=== PATIENT | female | born 1990 | race African-American/Black ===

== ENCOUNTER 2016-03-17 11:11 | Emergency (ER) | payer OTHER ==
[2016-03-17 11:22] VITALS: RESP 16
[2016-03-17] MEDS ORDERED: ALBUTEROL NEBULIZED 2.5 MG/3 ML INHALATION STA (11:43)
[2016-03-17] MEDS ORDERED: predniSONE 20 MG TAB PO STA (11:43)
[2016-03-17 12:11] LABS: Basophils % (A) 0 %; CH 24.5; CHCM 30.8; Eosinophils # (A) 0.2 k/uL (0-0.7); Eosinophils % (A) 2 %; HCT 40.7 % (34.0-46.0); HDW 2.53; HGB 12.8 gm/dL (11.4-16.0); Hypochromasia Slight; Luc # (Auto) 0.19; Luc % (Auto) 2; Lymphocytes # (A) 2.1 k/uL (1.0-4.8); Lymphocytes % (A) 20 %; MCH 25.1 pg (25.0-35.0); MCHC 31.4 g/dL (31.0-37.0); MCV 80.1 fL (80.0-100.0); Mean Platelet Volume 6.5; Monocytes # (A) 0.5 k/uL (0-1.0); Monocytes % (A) 4 %; Neutrophils # (A) 7.4 k/uL (1.3-7.7); Neutrophils % (A) 72 %; RBC 5.09 m/uL (3.80-5.40); RDW 13.6 % (11.5-15.5); WBC 10.4 k/uL (3.8-10.6); WBC (Perox) 10.46
[2016-03-17 12:12] LABS: Appearance,Urine Clear (Clear); Bilirubin,Urine Negative (Negative); Glucose,Urine (UA) Negative (Negative); Ketones,Urine Negative (Negative); Leukocyte Esterase,Urine Negative (Negative); Nitrite,Urine Negative (Negative); Protein,Urine Negative (Negative); Specific Gravity,Urine 1.012 (1.001-1.035); UA Billing (MACRO vs. MICRO) CHEM; Urobilinogen,Urine <2.0 mg/dL (<2.0)
[2016-03-17 12:25] LABS: Anion Gap 9 mmol/L; Blood Urea Nitrogen 7 mg/dL (7-17); Carbon Dioxide 21 mmol/L (22-30); Chloride 108 mmol/L (98-107); Glucose 80 mg/dL (74-99); Non-African American GFR(MDRD) >60 (>60 ml/min/1.73 sqM); Potassium 4.3 mmol/L (3.5-5.1); Sodium 138 mmol/L (137-145)
--- NOTE | 2016-03-17 12:45 | ED ---
General Adult HPI - General Chief complaint: Upper Respiratory Infection Stated complaint: COUGH AND SORE THROAT Time Seen by Provider: 03/17/16 11:21 Source: patient, RN notes reviewed Mode of arrival: ambulatory Limitations: no limitations - History of Present Illness Initial comments: This patient is a 25-year-old woman who has 2 complaints today. First is that she has had cough, congestion, and wheezing going on for 3-4 days now. She states that she usually uses albuterol but that she is out of this medication. Patient denies fever. She denies head or neck pain. The patient also has been having chronic intermittent abdominal pains, that her worst in the right upper quadrant. She describes it as an aching pain that sometimes radiates to her back. She states it is intermittent. There are times that it seems to be made worse with eating. She is not having any associated fever or chills, nausea or vomiting or change in bowel movements., - Related Data Home Medications Medication Instructions Recorded Confirmed Albuterol Inhaler [Ventolin 1 - 2 puff INHALATION RT-Q6H PRN 01/12/15 03/17/16 Inhaler] Dextroamphetamine/Amphetamine 30 mg PO BID 01/15/15 03/17/16 [Adderall Xr] Lurasidone HCl [Latuda] 60 mg PO DAILY 12/17/15 03/17/16 PARoxetine [Paxil] 20 mg PO DAILY 12/17/15 03/17/16 Previous Rx's Medication Instructions Recorded Albuterol Inhaler [Ventolin Hfa 1 - 2 puff INHALATION Q6HR PRN #1 03/17/16 Inhaler] inhaler predniSONE 60 mg PO DAILY #30 tab 03/17/16 Allergies Allergy/AdvReac Type Severity Reaction Status Date / Time iodine Allergy Unknown Verified 03/17/16 11:31 Penicillins Allergy Unknown Verified 03/17/16 11:31 Review of Systems ROS Statement: Those systems with pertinent positive or pertinent negative responses have been documented in the HPI. ROS Other: All systems not noted in ROS Statement are negative. Past Medical History Past Medical History: Asthma Additional Past Medical History / Comment(s): SEASONAL ASTHMA. SEVERE PAIN DURING MENSES. History of Any Multi-Drug Resistant Organisms: None Reported Additional Past Surgical History / Comment(s): DENTAL EXTRACTIONS, D&C Past Anesthesia/Blood Transfusion Reactions: No Reported Reaction Past Psychological History: ADD/ADHD, Anxiety, Bipolar, Depression Additional Psychological History / Comment(s): OCD. BORDERLINE PERSONALITY DISORDER. GOES TO [facility], SEES DR MATHEW. Smoking Status: Current every day smoker Past Alcohol Use History: None Reported Additional Past Alcohol Use History / Comment(s): social drinker, less than 7 per week Past Drug Use History: Marijuana Additional Drug Use History / Comment(s): SMOKES QID- 10 per day - Past Family History Mother History Unknown: Yes Family Medical History: No Reported History Additional Family Medical History / Comment(s): ADOPTED, NO FAMILY HX KNOWN Father History Unknown: Yes General Exam Limitations: no limitations Course Vital Signs 03/17/16 03/17/16 03/17/16 11:17 11:23 11:58 Temperature 97.9 F Pulse Rate 94 64 Respiratory 16 16 Rate Blood Pressure 134/78 O2 Sat by Pulse 97 Oximetry 03/17/16 03/17/16 12:10 13:22 Temperature 98.1 F Pulse Rate 66 65 Respiratory 16 Rate Blood Pressure 140/77 O2 Sat by Pulse 97 Oximetry Medical Decision Making - Medical Decision Making Shouldn't 25-year-old woman presenting with bronchitis, who is out of her home albuterol. She'll be given renewal of the albuterol and course of prednisone. In addition she is having some months of abdominal pain greatest in the right upper quadrant. The patient was not able to stay for full workup of this, as she states she needs to be at her job. She will have further workup with the follow-up physician, I did discuss return parameters and she will return to the emergency room immediately should any these develop. Also discussed follow-up with gynecology. - Lab Data Result diagrams: 03/17/16 11:58 03/17/16 11:58 Lab Results 03/17/16 03/17/16 03/17/16 Range/Units 11:58 11:58 11:58 WBC 10.4 (3.8-10.6) k/uL RBC 5.09 (3.80-5.40) m/uL Hgb 12.8 (11.4-16.0) gm/dL Hct 40.7 (34.0-46.0) % MCV 80.1 (80.0-100.0) fL MCH 25.1 (25.0-35.0) pg MCHC 31.4 (31.0-37.0) g/dL RDW 13.6 (11.5-15.5) % Plt Count 272 (150-450) k/uL Neutrophils % 72 % Lymphocytes % 20 % Monocytes % 4 % Eosinophils % 2 % Basophils % 0 % Neutrophils # 7.4 (1.3-7.7) k/uL Lymphocytes # 2.1 (1.0-4.8) k/uL Monocytes # 0.5 (0-1.0) k/uL Eosinophils # 0.2 (0-0.7) k/uL Basophils # 0.0 (0-0.2) k/uL Hypochromasia Slight Sodium 138 (137-145) mmol/L Potassium 4.3 (3.5-5.1) mmol/L Chloride 108 H (98-107) mmol/L Carbon Dioxide 21 L (22-30) mmol/L Anion Gap 9 mmol/L BUN 7 (7-17) mg/dL Creatinine 0.62 (0.52-1.04) mg/dL Est GFR (MDRD) Af Amer >60 (>60 ml/min/1.73 sqM) Est GFR (MDRD) Non-Af >60 (>60 ml/min/1.73 sqM) Glucose 80 (74-99) mg/dL Calcium 9.0 (8.4-10.2) mg/dL Urine Color Urine Appearance (Clear) Urine pH (5.0-8.0) Ur Specific [place] (1.001-1.035) Urine Protein (Negative) Urine Glucose (UA) (Negative) Urine Ketones (Negative) Urine Blood (Negative) Urine Nitrate (Negative) Urine Bilirubin (Negative) Urine Urobilinogen (<2.0) mg/dL Ur Leukocyte Esterase (Negative) Urine HCG, Qual Not Detected (Not Detectd) 03/17/16 Range/Units 11:58 WBC (3.8-10.6) k/uL RBC (3.80-5.40) m/uL Hgb (11.4-16.0) gm/dL Hct (34.0-46.0) % MCV (80.0-100.0) fL MCH (25.0-35.0) pg MCHC (31.0-37.0) g/dL RDW (11.5-15.5) % Plt Count (150-450) k/uL Neutrophils % % Lymphocytes % % Monocytes % % Eosinophils % % Basophils % % Neutrophils # (1.3-7.7) k/uL Lymphocytes # (1.0-4.8) k/uL Monocytes # (0-1.0) k/uL Eosinophils # (0-0.7) k/uL Basophils # (0-0.2) k/uL Hypochromasia Sodium (137-145) mmol/L Potassium (3.5-5.1) mmol/L Chloride (98-107) mmol/L Carbon Dioxide (22-30) mmol/L Anion Gap mmol/L BUN (7-17) mg/dL Creatinine (0.52-1.04) mg/dL Est GFR (MDRD) Af Amer (>60 ml/min/1.73 sqM) Est GFR (MDRD) Non-Af (>60 ml/min/1.73 sqM) Glucose (74-99) mg/dL Calcium (8.4-10.2) mg/dL Urine Color Light Yellow Urine Appearance Clear (Clear) Urine pH 8.0 (5.0-8.0) Ur Specific [place] 1.012 (1.001-1.035) Urine Protein Negative (Negative) Urine Glucose (UA) Negative (Negative) Urine Ketones Negative (Negative) Urine Blood Negative (Negative) Urine Nitrate Negative (Negative) Urine Bilirubin Negative (Negative) Urine Urobilinogen <2.0 (<2.0) mg/dL Ur Leukocyte Esterase Negative (Negative) Urine HCG, Qual (Not Detectd) Disposition Clinical Impression: Bronchitis, Abdominal pain Disposition: HOME SELF-CARE Condition: Fair Instructions: Abdominal Pain (ED), Acute Bronchitis (ED) Prescriptions: Albuterol Inhaler [Ventolin Hfa Inhaler] 1 - 2 puff INHALATION Q6HR PRN #1 inhaler PRN Reason: Wheezing predniSONE 60 mg PO DAILY #30 tab Referrals: Chema Marcus MD [Primary Care Provider] - 1-2 days Radha House MD [STAFF PHYSICIAN] - 1-2 days
[2016-03-17 13:23] VITALS: BP 140/77; PULSE 65; TEMP 98.1
--- NOTE | 2016-03-17 13:34 | US ---
EXAMINATION TYPE: US abdomen limited DATE OF EXAM: 03/17/2016 1:01 PM COMPARISON: CT in pacs CLINICAL HISTORY: Intermittent abdomen pain and N/V x 2 months, obese patient. EXAM MEASUREMENTS: Liver Length: 15.5cm Gallbladder Wall: 0.2cm CBD: 0.3cm Right Kidney: 12.8 x 4.3 x 4.6cm TECHNOLOGIST IMPRESSION: Technically difficult and limited study due to patient body habitus Pancreas: visualized portions wnl, body and tail obscured by overlying bowel gas Liver: heterogeneous, limited by rib shadowing Gallbladder: wnl Evidence for sonographic Linares's sign: yes CBD: visualized portions wnl, limited by overlying bowel gas Right Kidney: wnl IMPRESSION: 1. Normal abdomen ultrasound. 2. Limitation due to patient body habitus
== END 2016-03-17 13:25 | disposition home or self-care (01) ==
LOC: EC 11:11
DX: J40 Bronchitis, not specified as acute or chronic (principal); R10.11 Right upper quadrant pain; F90.9 Attention-deficit hyperactivity disorder, unspecified type; F31.9 Bipolar disorder, unspecified; F42.9 Obsessive-compulsive disorder, unspecified; F60.3 Borderline personality disorder; F41.9 Anxiety disorder, unspecified; F17.200 Nicotine dependence, unspecified, uncomplicated; Z79.899 Other long term (current) drug therapy; Z88.0 Allergy status to penicillin; Z88.8 Allergy status to other drugs, medicaments and biological substances
CPT/HCPCS: 36415; 94640; 80048; 85025; 81003; 81025; 76705; 99284; J7512

== ENCOUNTER 2016-07-14 21:44 | Emergency (ER) | payer OTHER ==
[2016-07-14 23:05] VITALS: RESP 18
--- NOTE | 2016-07-14 23:40 | ED ---
General Adult HPI - General Chief complaint: Extremity Injury, Upper Stated complaint: Left wrist injury Time Seen by Provider: 07/14/16 23:36 Source: patient Mode of arrival: ambulatory Limitations: no limitations - History of Present Illness Initial comments: 25-year-old female presenting for left wrist injury. Patient states that she was "horsing around" at work and actually dropped a 30 pound piece of metal on her wrist. She states she has pain over her wrist and base of her left thumb at this point. She denies any other injury. States he has used ice to the area but the pain is persisted. She has tried Motrin with some relief of pain. - Related Data Home Medications Medication Instructions Recorded Confirmed Dextroamphetamine/Amphetamine 30 mg PO BID 01/15/15 07/14/16 [Adderall Xr] Lurasidone HCl [Latuda] 60 mg PO DAILY 12/17/15 07/14/16 PARoxetine [Paxil] 20 mg PO DAILY 12/17/15 07/14/16 Previous Rx's Medication Instructions Recorded Albuterol Inhaler [Ventolin Hfa 1 - 2 puff INHALATION Q6HR PRN #1 03/17/16 Inhaler] inhaler HYDROcodone/APAP 5-325MG [[place] 1 tab PO Q6HR PRN #6 tab 07/15/16 5-325] Ibuprofen [Motrin] 800 mg PO Q8HR PRN #21 tab 07/15/16 Allergies Allergy/AdvReac Type Severity Reaction Status Date / Time iodine Allergy Unknown Verified 03/17/16 11:31 Penicillins Allergy Unknown Verified 03/17/16 11:31 Review of Systems ROS Statement: Those systems with pertinent positive or pertinent negative responses have been documented in the HPI. ROS Other: All systems not noted in ROS Statement are negative. Past Medical History Past Medical History: Asthma Additional Past Medical History / Comment(s): SEASONAL ASTHMA. SEVERE PAIN DURING MENSES. History of Any Multi-Drug Resistant Organisms: None Reported Additional Past Surgical History / Comment(s): DENTAL EXTRACTIONS, D&C Past Anesthesia/Blood Transfusion Reactions: No Reported Reaction Past Psychological History: ADD/ADHD, Anxiety, Bipolar, Depression Additional Psychological History / Comment(s): OCD. BORDERLINE PERSONALITY DISORDER. GOES TO [facility], SEES DR MATHEW. Smoking Status: Current every day smoker Past Alcohol Use History: None Reported Additional Past Alcohol Use History / Comment(s): social drinker, less than 7 per week Past Drug Use History: Marijuana Additional Drug Use History / Comment(s): SMOKES QID- 10 per day - Past Family History Mother History Unknown: Yes Family Medical History: No Reported History Additional Family Medical History / Comment(s): ADOPTED, NO FAMILY HX KNOWN Father History Unknown: Yes General Exam - General Exam Comments Initial Comments: General: Awake and Alert. No acute distress. Does not appear acutely ill. Eyes: ZACHARIAH,. No scleral icterus. HENT: Atraumatic, normocephalic. Mucous membranes moist. Trachea midline. Neck: The neck is supple, there is no JVD. Cardiovascular: Regular rate and rhythm. No murmur, rub, or gallop is appreciated. Distal pulses intact, 2+ radial bilaterally. Respiratory: Lungs are clear to auscultation bilaterally. No wheezes, rales, rhonchi. No respiratory distress. Gastrointestinal: Non-distended. Obese. Musculoskeletal: Left wrist with tenderness in the base the thumb and over the dorsal wrist. There is good range of motion. Strength is intact. Good cap refill. Neurological: A&Ox3. There are no obvious motor or sensory deficits.. Skin: Skin is warm and dry and no rashes or lesions are noted. Psychiatric: Cooperative, appropriate mood & affect. Limitations: no limitations Course Vital Signs 07/14/16 07/15/16 23:02 00:44 Temperature 98.1 F 97 F L Pulse Rate 64 67 Respiratory 18 18 Rate Blood Pressure 119/81 133/71 O2 Sat by Pulse 100 97 Oximetry Medical Decision Making - Medical Decision Making 25-year-old female presenting for left wrist injury. No evidence of gross deformity. X-ray imaging was performed without evidence of acute fracture. Patient was placed in a splint for support as she complains of pain at the base of the thumb and over the scaphoid area. Discussed importance of follow-up in 4 -5 days for repeat imaging if pain is not improving to rule out occult fracture. Discussed ice and elevation. Rx for pain medication provided. Work note provided upon request. Discussed close follow-up with PCP. Discussed concerning signs and symptoms for immediate return to the ED. Patient is agreeable to plan and discharge home. - Radiology Data Radiology results: report reviewed, image reviewed Disposition Clinical Impression: Left wrist pain, Left wrist injury Disposition: HOME SELF-CARE Condition: Stable Instructions: Wrist Injury (ED) Additional Instructions: Please wear splint for support, but you may take it off to shower. If pain is not improved in 4-5 days please follow up for repeat X rays to rule out occult fracture. Prescriptions: HYDROcodone/APAP 5-325MG [[place] 5-325] 1 tab PO Q6HR PRN #6 tab PRN Reason: Pain Ibuprofen [Motrin] 800 mg PO Q8HR PRN #21 tab PRN Reason: Pain Referrals: Chema Marcus MD [Primary Care Provider] - 1-2 days Time of Disposition: 00:37
[2016-07-15] MEDS ORDERED: HYDROcodone/APAP 5-325MG 1 EACH TAB PO STA (00:16)
--- NOTE | 2016-07-15 00:20 | XR ---
EXAM: XR Left Wrist Complete, 3 or More Views CLINICAL HISTORY: Reason: Pain TECHNIQUE: Frontal, lateral and oblique views of the left wrist. COMPARISON: 06/30/2015 FINDINGS: Bones/joints: No acute fracture or malalignment. Soft tissues: Unremarkable. No radiopaque foreign body. IMPRESSION: No acute fracture or malalignment.
[2016-07-15 00:45] VITALS: BP 133/71; PULSE 67; TEMP 97
--- NOTE | 2016-07-29 19:37 | CDI ---
Documentation Clarification OP Dear Dr. Lozada, Please do an addendum to your ED Note stating what type and size of splint was applied for this patient's wrist injury. The Discharge Instructions discuss the splint. However, for accurate charging of the patient, we need you to document ---was it a short arm OCL splint or other type and size?? PLEASE DO AN ADDENDUM TO YOUR ED PHYSICIAN DOCUMENT Thank you, Deepti Temple Courtesy Clerk Call [phone] if you have questions. FRANK
== END 2016-07-15 00:45 | disposition home or self-care (01) ==
LOC: EC 21:44
DX: S69.92XA Unspecified injury of left wrist, hand and finger(s), initial encounter (principal); M25.532 Pain in left wrist; F90.9 Attention-deficit hyperactivity disorder, unspecified type; F31.9 Bipolar disorder, unspecified; F41.9 Anxiety disorder, unspecified; F42.9 Obsessive-compulsive disorder, unspecified; F60.3 Borderline personality disorder; F17.200 Nicotine dependence, unspecified, uncomplicated; Z79.899 Other long term (current) drug therapy; Z88.0 Allergy status to penicillin; Z88.8 Allergy status to other drugs, medicaments and biological substances; W20.8XXA Other cause of strike by thrown, projected or falling object, initial encounter
CPT/HCPCS: 29125; 99283

== ENCOUNTER 2017-04-28 17:33 | Emergency (ER) | payer MEDICARE, OTHER ==
[2017-04-28 18:20] VITALS: BP 133/80; PULSE 122; RESP 20
[2017-04-28] MEDS ORDERED: KETOROLAC 30 MG/ML 1 ML VIAL IVP STA (18:37)
[2017-04-28] MEDS ORDERED: ONDANSETRON 4 MG/2 ML VIAL IVP STA (18:37)
[2017-04-28] MEDS ORDERED: ACETAMINOPHEN TAB 325 MG TAB PO STA (18:38)
--- NOTE | 2017-04-28 18:41 | ED ---
General Adult HPI - General Chief complaint: Upper Respiratory Infection Stated complaint: nausea/fever/sore throat Time Seen by Provider: 04/28/17 18:21 Source: patient Mode of arrival: ambulatory Limitations: no limitations - History of Present Illness Initial comments: 26-year-old female patient presents to the emergency department today with multiple complaints. Patient reports that she has been vomiting for the last 2 days. States that she has had 7-11 episodes of vomiting today. She states that she has had 3 episodes of diarrhea. States that she did have 2 episodes of vomiting with presence of blood. She denies ingestion of anything red. States that she has had a fever for the last 3-1/2 weeks. States it's been every single day, fevers and chills. She states that today she is having pressure and cramping in her suprapubic area. She is complaining of intermittent back pain. She states that she is also having cough, sore throat, nasal congestion that started yesterday. Patient states she did take Motrin approximately 6 hours ago. She denies any chance of . Denies any sick contacts. Patient denies any recent rash, shortness breath, chest pain, constipation, numbness, tingling, dizziness, weakness, headache, visual changes , or any other complaints. - Related Data Home Medications Medication Instructions Recorded Confirmed Dextroamphetamine/Amphetamine 30 mg PO BID 01/15/15 04/28/17 [Adderall Xr] Lurasidone HCl [Latuda] 60 mg PO DAILY 12/17/15 04/28/17 PARoxetine [Paxil] 20 mg PO DAILY 12/17/15 04/28/17 Albuterol Inhaler [Ventolin Hfa 1 - 2 puff INHALATION RT-Q6H PRN 04/28/17 Inhaler] Loratadine [Claritin] 10 mg PO DAILY 04/28/17 04/28/17 Previous Rx's Medication Instructions Recorded Ibuprofen [Motrin] 800 mg PO Q8HR PRN #21 tab 07/15/16 Ondansetron [Zofran ODT] 4 mg PO Q8HR PRN #10 tab 04/28/17 Allergies Allergy/AdvReac Type Severity Reaction Status Date / Time iodine Allergy Unknown Verified 04/28/17 18:44 Penicillins Allergy Unknown Verified 04/28/17 18:44 Review of Systems ROS Statement: Those systems with pertinent positive or pertinent negative responses have been documented in the HPI. ROS Other: All systems not noted in ROS Statement are negative. Past Medical History Past Medical History: Asthma Additional Past Medical History / Comment(s): SEASONAL ASTHMA. SEVERE PAIN DURING MENSES. History of Any Multi-Drug Resistant Organisms: None Reported Additional Past Surgical History / Comment(s): DENTAL EXTRACTIONS, D&C Past Anesthesia/Blood Transfusion Reactions: No Reported Reaction Past Psychological History: ADD/ADHD, Anxiety, Bipolar, Depression Smoking Status: Current every day smoker Past Alcohol Use History: None Reported Past Drug Use History: Marijuana - Past Family History Mother History Unknown: Yes Family Medical History: No Reported History Additional Family Medical History / Comment(s): ADOPTED, NO FAMILY HX KNOWN Father History Unknown: Yes General Exam Limitations: no limitations General appearance: alert, in no apparent distress, other (This is a well- developed, well-nourished adult female patient in no acute distress. Vital signs upon presentation are temperature 100.5F, pulse 122, respirations 20, blood pressure 133/80, pulse ox 99% on room air.) Eye exam: Present: normal appearance, PERRL, EOMI. Absent: scleral icterus, conjunctival injection, periorbital swelling ENT exam: Present: normal exam, mucous membranes moist, TM's normal bilaterally. Absent: normal oropharynx (Pharyngeal erythema, tonsillar hypertrophy, no evidence of exudate) Neck exam: Present: normal inspection. Absent: tenderness, meningismus, lymphadenopathy Respiratory exam: Present: normal lung sounds bilaterally. Absent: respiratory distress, wheezes, rales, rhonchi, stridor Cardiovascular Exam: Present: normal rhythm, tachycardia, normal heart sounds. Absent: systolic murmur, diastolic murmur, rubs, gallop, clicks GI/Abdominal exam: Present: soft, normal bowel sounds. Absent: distended, tenderness, guarding, rebound, rigid Back exam: Present: CVA tenderness (L). Absent: CVA tenderness (R) Neurological exam: Present: alert, oriented X3, CN II-XII intact Psychiatric exam: Present: normal affect, normal mood Skin exam: Present: warm, dry, intact, normal color. Absent: rash Course Vital Signs 04/28/17 04/28/17 04/28/17 18:18 19:23 20:30 Temperature 100.5 F H 100.9 F H Pulse Rate 122 H Respiratory 20 20 20 Rate Blood Pressure 133/80 O2 Sat by Pulse 99 Oximetry Medical Decision Making - Medical Decision Making 26-year-old female patient percents to the emergency department today with gastrointestinal and upper respiratory complaints. Physical examination did show a that her pharynx was erythematous with swollen tonsils. There is no exudate or lymphadenopathy noted. Abdomen was soft and nontender. Labs reviewed and did reveal an elevated white blood cell count at 18. She was negative for influenza. Urinalysis was negative. I did discuss findings with the patient and informed her that her symptoms are most likely related to overlapping viral infections was upper respiratory and gastrointestinal. I did inform her that it felt that her white blood cell count was elevated reaction to vomiting all day. Chest x-ray was negative for any acute process. We will discharge her home with a prescription for Zofran to control her vomiting. She is instructed to follow-up with her primary care physician for recheck in 1-2 days for just instructed to return here immediately for any new, worsening, or concerning symptoms. She verbalizes understanding and agrees with this plan. - Lab Data Result diagrams: 04/28/17 19:00 04/28/17 19:00 Lab Results 04/28/17 04/28/17 04/28/17 Range/Units 19:00 19:00 19:00 WBC 18.0 H (3.8-10.6) k/uL RBC 5.11 (3.80-5.40) m/uL Hgb 12.4 (11.4-16.0) gm/dL Hct 39.9 (34.0-46.0) % MCV 78.0 L (80.0-100.0) fL MCH 24.2 L (25.0-35.0) pg MCHC 31.0 (31.0-37.0) g/dL RDW 13.6 (11.5-15.5) % Plt Count 303 (150-450) k/uL Neutrophils % 92 % Lymphocytes % 4 % Monocytes % 3 % Eosinophils % 1 % Basophils % 0 % Neutrophils # 16.5 H (1.3-7.7) k/uL Lymphocytes # 0.8 L (1.0-4.8) k/uL Monocytes # 0.5 (0-1.0) k/uL Eosinophils # 0.2 (0-0.7) k/uL Basophils # 0.0 (0-0.2) k/uL Sodium 140 (137-145) mmol/L Potassium 4.0 (3.5-5.1) mmol/L Chloride 106 (98-107) mmol/L Carbon Dioxide 23 (22-30) mmol/L Anion Gap 11 mmol/L BUN 10 (7-17) mg/dL Creatinine 0.70 (0.52-1.04) mg/dL Est GFR (MDRD) Af Amer >60 (>60 ml/min/1.73 sqM) Est GFR (MDRD) Non-Af >60 (>60 ml/min/1.73 sqM) Glucose 109 H (74-99) mg/dL Plasma Lactic Acid Biju (0.7-2.0) mmol/L Calcium 9.7 (8.4-10.2) mg/dL Total Bilirubin 0.4 (0.2-1.3) mg/dL AST 18 (14-36) U/L ALT 22 (9-52) U/L Alkaline Phosphatase 79 (38-126) U/L Total Protein 7.6 (6.3-8.2) g/dL Albumin 4.3 (3.5-5.0) g/dL Urine Color Urine Appearance (Clear) Urine pH (5.0-8.0) Ur Specific [place] (1.001-1.035) Urine Protein (Negative) Urine Glucose (UA) (Negative) Urine Ketones (Negative) Urine Blood (Negative) Urine Nitrite (Negative) Urine Bilirubin (Negative) Urine Urobilinogen (<2.0) mg/dL Ur Leukocyte Esterase (Negative) Urine RBC (0-5) /hpf Urine WBC (0-5) /hpf Ur Squamous Epith Cells (0-4) /hpf Urine Bacteria (None) /hpf Urine Mucus (None) /hpf Urine HCG, Qual Not Detected (Not Detectd) Influenza Type A RNA (Not Detectd) Influenza Type B (PCR) (Not Detectd) 04/28/17 04/28/17 04/28/17 Range/Units 19:00 19:00 19:55 WBC (3.8-10.6) k/uL RBC (3.80-5.40) m/uL Hgb (11.4-16.0) gm/dL Hct (34.0-46.0) % MCV (80.0-100.0) fL MCH (25.0-35.0) pg MCHC (31.0-37.0) g/dL RDW (11.5-15.5) % Plt Count (150-450) k/uL Neutrophils % % Lymphocytes % % Monocytes % % Eosinophils % % Basophils % % Neutrophils # (1.3-7.7) k/uL Lymphocytes # (1.0-4.8) k/uL Monocytes # (0-1.0) k/uL Eosinophils # (0-0.7) k/uL Basophils # (0-0.2) k/uL Sodium (137-145) mmol/L Potassium (3.5-5.1) mmol/L Chloride (98-107) mmol/L Carbon Dioxide (22-30) mmol/L Anion Gap mmol/L BUN (7-17) mg/dL Creatinine (0.52-1.04) mg/dL Est GFR (MDRD) Af Amer (>60 ml/min/1.73 sqM) Est GFR (MDRD) Non-Af (>60 ml/min/1.73 sqM) Glucose (74-99) mg/dL Plasma Lactic Acid Biju 1.4 (0.7-2.0) mmol/L Calcium (8.4-10.2) mg/dL Total Bilirubin (0.2-1.3) mg/dL AST (14-36) U/L ALT (9-52) U/L Alkaline Phosphatase (38-126) U/L Total Protein (6.3-8.2) g/dL Albumin (3.5-5.0) g/dL Urine Color Yellow Urine Appearance Cloudy H (Clear) Urine pH 8.5 H (5.0-8.0) Ur Specific [place] 1.019 (1.001-1.035) Urine Protein Trace H (Negative) Urine Glucose (UA) Negative (Negative) Urine Ketones Negative (Negative) Urine Blood Negative (Negative) Urine Nitrite Negative (Negative) Urine Bilirubin Negative (Negative) Urine Urobilinogen <2.0 (<2.0) mg/dL Ur Leukocyte Esterase Negative (Negative) Urine RBC 9 H (0-5) /hpf Urine WBC 4 (0-5) /hpf Ur Squamous Epith Cells 9 H (0-4) /hpf Urine Bacteria Rare H (None) /hpf Urine Mucus Few H (None) /hpf Urine HCG, Qual (Not Detectd) Influenza Type A RNA Not Detected (Not Detectd) Influenza Type B (PCR) Not Detected (Not Detectd) - Radiology Data Radiology results: report reviewed, image reviewed Two-view x-ray of the chest shows heart and mediastinum are normal. Lungs are clear of infiltrate. There is no pleural effusion. Bony thorax is intact. Impression by Dr. Griffiths shows normal chest. Disposition Clinical Impression: Gastroenteritis, Viral upper respiratory illness Disposition: HOME SELF-CARE Condition: Good Instructions: Upper Respiratory Infection (ED), Gastroenteritis (ED) Additional Instructions: Increase fluids. Take, or Motrin for pain and fever control. Start with clear liquid diet and advance as tolerated. Do not eat any greasy or spicy foods for the next few days. Follow-up with her primary care physician for recheck in 1- 2 days. Return here immediately for any new, worsening, or concerning symptoms. Prescriptions: Ondansetron [Zofran ODT] 4 mg PO Q8HR PRN #10 tab PRN Reason: Nausea Referrals: Chema Marcus MD [Primary Care Provider] - 1-2 days Time of Disposition: 20:50
[2017-04-28 19:19] LABS: Basophils % (A) 0 %; Eosinophils # (A) 0.2 k/uL (0-0.7); Eosinophils % (A) 1 %; HCT 39.9 % (34.0-46.0); HGB 12.4 gm/dL (11.4-16.0); Lymphocytes # (A) 0.8 k/uL (1.0-4.8); Lymphocytes % (A) 4 %; MCH 24.2 pg (25.0-35.0); Mean Platelet Volume 7.6; Monocytes # (A) 0.5 k/uL (0-1.0); Monocytes % (A) 3 %; Neutrophils # (A) 16.5 k/uL (1.3-7.7); Neutrophils % (A) 92 %; Platelet Count 303 k/uL (150-450); RBC 5.11 m/uL (3.80-5.40); RDW 13.6 % (11.5-15.5)
[2017-04-28] MEDS ORDERED: SODIUM CHLORIDE 0.9% 1,000 ML IV ONE (19:20)
[2017-04-28 19:26] LABS: Appearance,Urine Cloudy (Clear); Bacteria,Urine Rare /hpf; Bilirubin,Urine Negative (Negative); Blood,Urine Negative (Negative); Color,Urine Yellow; Glucose,Urine (UA) Negative (Negative); Ketones,Urine Negative (Negative); Leukocyte Esterase,Urine Negative (Negative); Mucus,Urine Few /hpf; Nitrite,Urine Negative (Negative); PH, Urine 8.5 (5.0-8.0); Protein,Urine Trace (Negative); RBC,Urine 9 /hpf (0-5); Specific Gravity,Urine 1.019 (1.001-1.035); Squamous Epithelial Cell,Urine 9 /hpf (0-4); Urobilinogen,Urine <2.0 mg/dL (<2.0); WBC,Urine 4 /hpf (0-5)
[2017-04-28 19:41] LABS: ALT 22 U/L (9-52); AST 18 U/L (14-36); Albumin 4.3 g/dL (3.5-5.0); Alkaline Phosphatase 79 U/L (38-126); Anion Gap 11 mmol/L; Blood Urea Nitrogen 10 mg/dL (7-17); Calcium 9.7 mg/dL (8.4-10.2); Carbon Dioxide 23 mmol/L (22-30); Chloride 106 mmol/L (98-107); Glucose 109 mg/dL (74-99); Sodium 140 mmol/L (137-145); Total Bilirubin 0.4 mg/dL (0.2-1.3); Total Protein 7.6 g/dL (6.3-8.2)
--- NOTE | 2017-04-28 19:47 | XR ---
EXAMINATION TYPE: XR chest 2V DATE OF EXAM: 04/28/2017 COMPARISON: NONE HISTORY: Cough and congestion TECHNIQUE: Frontal and lateral views of the chest are obtained. FINDINGS: Heart and mediastinum are normal. Lungs are clear of infiltrate. There is no pleural effus ion. Bony thorax is intact. IMPRESSION: Normal chest.
[2017-04-28 21:08] VITALS: TEMP 100.9
== END 2017-04-28 21:00 | disposition home or self-care (01) ==
LOC: EC 17:33
DX: J06.9 Acute upper respiratory infection, unspecified (principal); K52.9 Noninfective gastroenteritis and colitis, unspecified; D72.829 Elevated white blood cell count, unspecified; R00.0 Tachycardia, unspecified; J45.909 Unspecified asthma, uncomplicated; F31.9 Bipolar disorder, unspecified; F41.9 Anxiety disorder, unspecified; F90.9 Attention-deficit hyperactivity disorder, unspecified type; F17.200 Nicotine dependence, unspecified, uncomplicated; Z79.899 Other long term (current) drug therapy; Z88.0 Allergy status to penicillin; Z91.048 Other nonmedicinal substance allergy status
CPT/HCPCS: 36415; 80053; 83605; 85025; 81001; 81025; 87040; 87502; 71046; 99283; 96374; 96375; 96361; J2405; J1885

== ENCOUNTER 2019-12-28 12:42 | Emergency (ER) | payer MEDICARE, OTHER ==
[2019-12-28 13:02] VITALS: RESP 18
--- NOTE | 2019-12-28 13:16 | ED ---
General Adult HPI - General Source: patient, police, RN notes reviewed, old records reviewed Mode of arrival: ambulatory Limitations: no limitations <Tae Brasher - Last Filed: 12/28/19 14:47> <Tae Jacques - Last Filed: 12/28/19 16:58> - General Chief complaint: Psychiatric Symptoms Stated complaint: Mental health Time Seen by Provider: 12/28/19 12:58 - History of Present Illness Initial comments: 29-year-old female presenting for ental health evaluation. Patient had gotten into an argument with herroommate, she had a pocket knife and was threatening to cut her arm. Police were contacted and the patient was brought in for mental health evaluation. She states she did have a pocket knife and was threatening to cut her wrist. She states this was secondary to the argument that she had had. She currently does not have any suicidal ideation or suicidal plans. (Tae Brasher) - Related Data Home Medications Medication Instructions Recorded Confirmed Loratadine [Claritin] 10 mg PO DAILY 04/28/17 12/28/19 ALPRAZolam [Xanax] 0.5 - 1 mg PO TID PRN 12/28/19 12/28/19 Albuterol Inhaler [Ventolin Hfa 1 puff INHALATION RT-Q4H PRN 12/28/19 12/28/19 Inhaler] Albuterol Nebulized [Ventolin 2.5 mg INHALATION Q8H PRN 12/28/19 12/28/19 Nebulized] Dextroamphetamine/Amphetamine 20 mg PO QAM 12/28/19 12/28/19 [Adderall Xr] EPINEPHrine (Auto Inject) [Epipen] 0.3 mg IM ONCE PRN 12/28/19 12/28/19 Fluticasone Propionate [Flovent 1 puff INHALATION RT-BID 12/28/19 12/28/19 Hfa 110 mcg] Lurasidone [Latuda] 80 mg PO DAILY 12/28/19 12/28/19 PARoxetine HCL [Paxil Cr] 37.5 mg PO DAILY 12/28/19 12/28/19 Allergies Allergy/AdvReac Type Severity Reaction Status Date / Time azithromycin Allergy Unknown Verified 12/28/19 14:56 iodine Allergy Unknown Verified 12/28/19 14:56 Penicillins Allergy Unknown Verified 12/28/19 14:56 Review of Systems ROS Other: All systems not noted in ROS Statement are negative. <Tae Brasher - Last Filed: 12/28/19 14:47> ROS Other: All systems not noted in ROS Statement are negative. <Tae Jacques - Last Filed: 12/28/19 16:58> ROS Statement: Those systems with pertinent positive or pertinent negative responses have been documented in the HPI. Past Medical History Past Medical History: Asthma Additional Past Medical History / Comment(s): SEASONAL ASTHMA. SEVERE PAIN DURING MENSES. History of Any Multi-Drug Resistant Organisms: None Reported Additional Past Surgical History / Comment(s): DENTAL EXTRACTIONS, D&C Past Anesthesia/Blood Transfusion Reactions: No Reported Reaction Past Psychological History: ADD/ADHD, Anxiety, Bipolar, Depression Smoking Status: Current every day smoker Past Alcohol Use History: None Reported Past Drug Use History: Marijuana - Past Family History Mother History Unknown: Yes Family Medical History: No Reported History Additional Family Medical History / Comment(s): ADOPTED, NO FAMILY HX KNOWN Father History Unknown: Yes <Tae Brasher - Last Filed: 12/28/19 14:47> General Exam Limitations: no limitations General appearance: alert, in no apparent distress Head exam: Present: atraumatic, normocephalic Eye exam: Present: normal appearance, PERRL ENT exam: Present: normal exam Neck exam: Present: normal inspection. Absent: tenderness, meningismus Respiratory exam: Present: normal lung sounds bilaterally. Absent: respiratory distress, wheezes Cardiovascular Exam: Present: regular rate, normal rhythm GI/Abdominal exam: Present: soft. Absent: distended, tenderness, guarding Extremities exam: Present: normal capillary refill, other (linear lacerations on the left forearm, these are old, no repairable laceration, well-healed, no signs of infection.) Neurological exam: Present: alert, oriented X3 Psychiatric exam: Present: normal affect, normal mood. Absent: suicidal ideation Skin exam: Present: warm, dry <Tae Brasher - Last Filed: 12/28/19 14:47> Course <Tae Brasher - Last Filed: 12/28/19 14:47> Vital Signs 12/28/19 12:59 Temperature 98.5 F Pulse Rate 80 Respiratory 18 Rate Blood Pressure 118/74 O2 Sat by Pulse 99 Oximetry - Reevaluation(s) Reevaluation #1: 12/28/19 1500 patient care signed out at shift change to Dr. Jacques awaiting EPS evaluation (Tae Brasher) Medical Decision Making <Tae Jacques - Last Filed: 12/28/19 16:58> - Medical Decision Making the patient was evaluated by the psychiatric service found apparently at the wrist herself or anyone else the presentation is consistent with an adjustment reaction (Tae Jacques) Disposition <Tae Brasher - Last Filed: 12/28/19 14:47> Is patient prescribed a controlled substance at d/c from ED?: No <Tae Jacques - Last Filed: 12/28/19 16:58> Clinical Impression: Adjustment disorder Disposition: HOME SELF-CARE Condition: Good Instructions (If sedation given, give patient instructions): Mood Disorders (ED) Referrals: Lee Stearns MD [Primary Care Provider] - 1-2 days
[2019-12-28 17:21] VITALS: BP 122/70; PULSE 85; TEMP 98.2
== END 2019-12-28 17:02 | disposition home or self-care (01) ==
LOC: EC 12:42
DX: F43.20 Adjustment disorder, unspecified (principal); J45.909 Unspecified asthma, uncomplicated; F41.9 Anxiety disorder, unspecified; F31.9 Bipolar disorder, unspecified; F90.9 Attention-deficit hyperactivity disorder, unspecified type; Z79.899 Other long term (current) drug therapy; F17.200 Nicotine dependence, unspecified, uncomplicated; Z88.1 Allergy status to other antibiotic agents; Z88.0 Allergy status to penicillin; Z91.048 Other nonmedicinal substance allergy status; Z79.51 Long term (current) use of inhaled steroids
CPT/HCPCS: 99284

== ENCOUNTER 2023-12-14 10:59 | Emergency (ER) | payer MEDICARE, OTHER ==
[2023-12-14 11:10] VITALS: BP 155/102; TEMP 98.5
[2023-12-14] MEDS: LIDOCAINE 2%-EPI 1:100,000 20 ML VIAL SQ STA (11:24)
[2023-12-14 12:43] LABS: Amphetamine Screen,Urine Detected (NotDetected); Barbiturate Screen,Urine Not Detected (NotDetected); Benzodiazepines Screen,Urine Detected (NotDetected); Cocaine Screen,Urine Not Detected (NotDetected); Methadone Screen, Urine Not Detected (NotDetected); Opiate Screen,Urine Not Detected (NotDetected); Oxycodone Screen, Urine Not Detected (NotDetected); Phencyclidine Screen,Urine Not Detected (NotDetected); Tricyclic Antidepressant,Urine Not Detected (NotDetected); Urn Cannabinoid Scrn Detected (NotDetected)
--- NOTE | 2023-12-14 13:21 | ED ---
Psych HPI - General Chief Complaint: Psychiatric Symptoms Stated Complaint: Mental Health Time Seen by Provider: 12/14/23 11:04 Source: patient, EMS, RN notes reviewed Mode of arrival: EMS Limitations: no limitations - History of Present Illness Initial Comments: 33-year-old female transitioning to male presents emergency department with chief complaint of depression, self harming right arm laceration. Patient is up-to-date on tetanus because a laceration to the right arm with a Bovie knife. Patient states that they have not had their medication several days was recently hospitalized in [place] for psychiatric treatment. Patient is here with mother. Patient denies any other complaints denies drug or alcohol abuse - Related Data Home Medications Medication Instructions Recorded Confirmed ALPRAZolam [Xanax] 0.5 - 1 mg PO TID PRN 12/28/19 12/14/23 Dextroamphetamine/Amphetamine 20 mg PO TID 12/14/23 12/14/23 [Adderall] Testosterone Cypionate 100 mg IM MAGANA 12/14/23 12/14/23 [Depo-Testosterone] Allergies Allergy/AdvReac Type Severity Reaction Status Date / Time azithromycin Allergy Unknown Verified 12/14/23 13:15 iodine Allergy Unknown Verified 12/14/23 13:15 Penicillins Allergy Unknown Verified 12/14/23 13:15 Childhood Review of Systems ROS Statement: Those systems with pertinent positive or pertinent negative responses have been documented in the HPI. ROS Other: All systems not noted in ROS Statement are negative. Past Medical History Past Medical History: Asthma Additional Past Medical History / Comment(s): SEASONAL ASTHMA. SEVERE PAIN DURING MENSES. History of Any Multi-Drug Resistant Organisms: None Reported Additional Past Surgical History / Comment(s): DENTAL EXTRACTIONS, D&C Past Anesthesia/Blood Transfusion Reactions: No Reported Reaction Past Psychological History: ADD/ADHD, Anxiety, Bipolar, Depression Smoking Status: Current every day smoker, Vaper Past Alcohol Use History: None Reported Past Drug Use History: Marijuana - Past Family History Mother History Unknown: Yes Family Medical History: No Reported History Additional Family Medical History / Comment(s): ADOPTED, NO FAMILY HX KNOWN Father History Unknown: Yes General Exam Limitations: no limitations General appearance: alert, in no apparent distress Head exam: Present: atraumatic, normocephalic, normal inspection Eye exam: Present: normal appearance, PERRL, EOMI. Absent: scleral icterus, conjunctival injection, periorbital swelling ENT exam: Present: normal exam, mucous membranes moist Neck exam: Present: normal inspection, full ROM. Absent: tenderness, meningismus, lymphadenopathy Respiratory exam: Present: normal lung sounds bilaterally. Absent: respiratory distress, wheezes, rales, rhonchi, stridor Cardiovascular Exam: Present: regular rate, normal rhythm, normal heart sounds. Absent: systolic murmur, diastolic murmur, rubs, gallop, clicks Extremities exam: Present: other (Right forearm there is a V-shaped laceration approximately 6 cm that is down to the muscle fascia) Course Vital Signs 12/14/23 12/14/23 11:06 13:25 Temperature 98.5 F Pulse Rate 75 72 Respiratory 20 18 Rate Blood Pressure 155/102 O2 Sat by Pulse 97 98 Oximetry Procedures - Laceration Laceration #1 Consent Obtained: verbal consent Indication: laceration Site: upper extremity (Forearm) Size (cm): 6 Description: flap, irregular Depth: involves muscle layer Anesthetic Used: lidocaine 2%, with epi Anesthesia Technique: local infiltration Amount (mls): 10 Pre-repair: wound explored, irrigated extensively, deep structures intact Type of Sutures: nylon, vicryl Size of Sutures: 3-0 Number of Sutures: 12 Technique: simple, interrupted, other (subcutaneous) Patient Tolerated Procedure: well, no complications Medical Decision Making - Medical Decision Making Was pt. sent in by a medical professional or institution (HOLLY Prasad, HOLE DIGGER TRUCK DRIVER, urgent care, hospital, or half-way...) When possible be specific @ -No Did you speak to anyone other than the patient for history (EMS, parent, family, police, friend...)? What history was obtained from this source @ -No Did you review nursing and triage notes (agree or disagree)? Why? @ -I reviewed and agree with nursing and triage notes Were old charts reviewed (outside hosp., previous admission, EMS record, old EKG, old radiological studies, urgent care reports/EKG's, half-way records)? Report findings @ -No old charts were reviewed Differential Diagnosis (chest pain, altered mental status, abdominal pain women, abdominal pain men, vaginal bleeding, weakness, fever, dyspnea, syncope, headache, dizziness, GI bleed, back pain, seizure, CVA, palpatations, mental he alth, musculoskeletal)? @ -Differential Mental Health Depression, anxiety, bipolar, psychosis, schizophrenia, borderline personality, situational depression, adjustment disorder, behavioral disorder, brain tumor, malingering, substance abuse, encephalopathy, medication reaction, dementia, hypothyroidism, degenerative neurologic disorder, lupus.... This is not meant to be all-inclusive list EKG interpreted by me (3pts min.). @ -None X-rays interpreted by me (1pt min.). @ -None done CT interpreted by me (1pt min.). @ -None done U/S interpreted by me (1pt. min.). @ -None done What testing was considered but not performed or refused? (CT, X-rays, U/S, labs)? Why? @ -None What meds were considered but not given or refused? Why? @ -None Did you discuss the management of the patient with other professionals (professionals i.e. , PA, HOLE DIGGER TRUCK DRIVER, lab, RT, psych nurse, nursing home social worker, regular senior care provider, teacher, personal banking officer, case filler)? Give summary @ -EPS evaluated patient and case discussed with psychiatrist recommends to patient to be discharged for outpatient treatment and follow-up with [facility] today Was smoking cessation discussed for >3mins.? @ -No Was critical care preformed (if so, how long)? @ -No Were there social determinants of health that impacted care today? How? (Homelessness, low income, unemployed, alcoholism, drug addiction, transportation, low edu. Level, literacy, decrease access to med. care, group home, rehab)? @ -No Was there de-escalation of care discussed even if they declined (Discuss DNR or withdrawal of care, Hospice)? DNR status @ -No What co-morbidities impacted this encounter? (DM, HTN, Smoking, COPD, CAD, Cancer, CVA, ARF, Chemo, Hep., AIDS, mental health diagnosis, sleep apnea, morbid obesity)? @ -None Was patient admitted / discharged? Hospital course, mention meds given and route, prescriptions, significant lab abnormalities, going to OR and other pertinent info. @Discharge patient was eval by EPS, safety plan in place patient discharged to mother for further care and watch Undiagnosed new problem with uncertain prognosis? @ -No Drug Therapy requiring intensive monitoring for toxicity (Heparin, Nitro, Insulin, Cardizem)? @ -No Were any procedures done? @ -[Laceration repair Diagnosis/symptom? @ -Depression, laceration Acute, or Chronic, or Acute on Chronic? @ -Acute Uncomplicated (without systemic symptoms) or Complicated (systemic symptoms)? @ -Complicated Side effects of treatment? @ -No Exacerbation, Progression, or Severe Exacerbation? @ -No Poses a threat to life or bodily function? How? (Chest pain, [place], [place], pneumonia, PE, COPD, DKA, ARF, appy, cholecystitis, CVA, Diverticulitis, Homicidal, Suicidal, threat to staff... and all critical care pts) @ -No - Lab Data Lab Results 12/14/23 Range/Units 11:23 Urine Opiates Screen Not Detected (NotDetected) Ur Oxycodone Screen Not Detected (NotDetected) Urine Methadone Screen Not Detected (NotDetected) Ur Barbiturates Screen Not Detected (NotDetected) U Tricyclic Antidepress Not Detected (NotDetected) Ur Phencyclidine Scrn Not Detected (NotDetected) Ur Amphetamines Screen Detected H (NotDetected) U Methamphetamines Scrn Not Detected (NotDetected) U Benzodiazepines Scrn Detected H (NotDetected) Urine Cocaine Screen Not Detected (NotDetected) U Marijuana (THC) Screen Detected H (NotDetected) Disposition Clinical Impression: Laceration of right forearm, Depression Disposition: HOME SELF-CARE Condition: Stable Instructions (If sedation given, give patient instructions): Care For Your Stitches (ED) Additional Instructions: Please return to the Emergency Department if symptoms worsen or any other concerns. Have sutures removed in 10 to 14 days Is patient prescribed a controlled substance at d/c from ED?: No Referrals: Lee Stearns MD [Primary Care Provider] - 1-2 days Time of Disposition: 13:21
[2023-12-14 13:27] VITALS: PULSE 72; RESP 18
== END 2023-12-14 13:26 | disposition home or self-care (01) ==
LOC: EDSEX → EC 10:59
CPT/HCPCS: 12002; 80306; 82075; 99285

== ENCOUNTER 2024-04-29 15:29 | Emergency (ER) | payer MEDICARE ==
[2024-04-29 15:43] VITALS: PULSE 78
[2024-04-29] MEDS: IBUPROFEN 800 MG TAB PO STA (16:03)
--- NOTE | 2024-04-29 16:03 | ED ---
Upper Extremity HPI - General Chief Complaint: Extremity Injury, Upper Stated Complaint: R Arm Injury Time Seen by Provider: 04/29/24 16:00 Source: patient, RN notes reviewed Mode of arrival: ambulatory Limitations: no limitations - History of Present Illness Initial Comments: 33-year-old female presented to the ER for evaluation of right forearm pain. Patient reports he was wrestling with friends last night and performed an arm bar maneuver. Since then patient has been having pain from elbow to hand. He does report his first and second digit was swollen when he went to bed last night this has since improved minimally. He does report numbness to his second digit. No other paresthesias. Full active range of motion. Patient took ibuprofen for pain control around 6 AM. No other injuries or complaints at this time. - Related Data Home Medications Medication Instructions Recorded Confirmed ALPRAZolam [Xanax] 0.5 - 1 mg PO TID PRN 12/28/19 12/14/23 Dextroamphetamine/Amphetamine 20 mg PO TID 12/14/23 12/14/23 [Adderall] Testosterone Cypionate 100 mg IM MAGANA 12/14/23 12/14/23 [Depo-Testosterone] Allergies Allergy/AdvReac Type Severity Reaction Status Date / Time azithromycin Allergy Unknown Verified 04/29/24 15:42 iodine Allergy Unknown Verified 04/29/24 15:42 Penicillins Allergy Unknown Verified 04/29/24 15:42 Childhood Review of Systems ROS Statement: Those systems with pertinent positive or pertinent negative responses have been documented in the HPI. ROS Other: All systems not noted in ROS Statement are negative. Past Medical History Past Medical History: Asthma Additional Past Medical History / Comment(s): SEASONAL ASTHMA. SEVERE PAIN DURING MENSES. History of Any Multi-Drug Resistant Organisms: None Reported Additional Past Surgical History / Comment(s): DENTAL EXTRACTIONS, D&C Past Anesthesia/Blood Transfusion Reactions: No Reported Reaction Past Psychological History: ADD/ADHD, Anxiety, Bipolar, Depression Smoking Status: Current every day smoker, Vaper Past Alcohol Use History: None Reported Past Drug Use History: Marijuana - Past Family History Mother History Unknown: Yes Family Medical History: No Reported History Additional Family Medical History / Comment(s): ADOPTED, NO FAMILY HX KNOWN Father History Unknown: Yes General Exam Limitations: no limitations General appearance: alert, in no apparent distress Respiratory exam: Present: normal lung sounds bilaterally. Absent: respiratory distress, wheezes, rales, rhonchi, stridor Cardiovascular Exam: Present: regular rate, normal rhythm, normal heart sounds. Absent: systolic murmur, diastolic murmur, rubs, gallop, clicks Extremities exam: Present: full ROM (elbow crepitus), tenderness (right forearm. numerous bruses noted on anterior aspect of right forearm. 2+ right radil pulse), normal capillary refill Neurological exam: Present: alert, oriented X3, CN II-XII intact Skin exam: Present: warm, dry, intact, normal color. Absent: rash Course Vital Signs 04/29/24 04/29/24 15:31 16:49 Temperature 97.8 F 97.9 F Pulse Rate 78 78 Respiratory 17 18 Rate Blood Pressure 136/96 131/89 O2 Sat by Pulse 99 99 Oximetry Medical Decision Making - Medical Decision Making Was pt. sent in by a medical professional or institution (, PA, HIGH SCHOOL DRAFTING TEACHER, urgent care, hospital, or fdc...) When possible be specific @ -No Did you speak to anyone other than the patient for history (EMS, parent, family, police, friend...)? What history was obtained from this source @ -No Did you review nursing and triage notes (agree or disagree)? Why? @ -I reviewed and agree with nursing and triage notes Were old charts reviewed (outside hosp., previous admission, EMS record, old EKG, old radiological studies, urgent care reports/EKG's, fdc records)? Report findings @ -No old charts were reviewed Differential Diagnosis (chest pain, altered mental status, abdominal pain women, abdominal pain men, vaginal bleeding, weakness, fever, dyspnea, syncope, headache, dizziness, GI bleed, back pain, seizure, CVA, palpatations, mental health, musculoskeletal)? @ -Differential Musculoskeletal: Muscular strain, contusion, ligament sprain, fracture, arthritis, septic arthritis, bursitis, cellulitis, muscle spasm, nerve compression, DVT, arterial occlusion, herpes zoster, electrolyte abnormality, tumor.... This is not meant to be in all inclusive list EKG interpreted by me (3pts min.). @ -None done X-rays interpreted by me (1pt min.). @ -Right forearm x-rays interpreted by me negative for acute fractures. CT interpreted by me (1pt min.). @ -None done U/S interpreted by me (1pt. min.). @ -None done What testing was considered but not performed or refused? (CT, X-rays, U/S, labs)? Why? @ -None What meds were considered but not given or refused? Why? @ -None Did you discuss the management of the patient with other professionals (professionals i.e. DrBronwyn, PA, HIGH SCHOOL DRAFTING TEACHER, lab, RT, psych nurse, social science teacher, marine operations coordinator, teacher, county health officer, shoe caser)? Give summary @ -No Was smoking cessation discussed for >3mins.? @ -No Was critical care preformed (if so, how long)? @ -No Were there social determinants of health that impacted care today? How? (Homelessness, low income, unemployed, alcoholism, drug addiction, transportation, low edu. Level, literacy, decrease access to med. care, nursing home, rehab)? @ -No Was there de-escalation of care discussed even if they declined (Discuss DNR or withdrawal of care, Hospice)? DNR status @ -No What co-morbidities impacted this encounter? (DM, HTN, Smoking, COPD, CAD, Cancer, CVA, ARF, Chemo, Hep., AIDS, mental health diagnosis, sleep apnea, morbid obesity)? @ -Anxiety Was patient admitted / discharged? Hospital course, mention meds given and rou te, prescriptions, significant lab abnormalities, going to OR and other pertinent info. @ -Discharge. 33-year-old female presenting to the ER for evaluation of right forearm pain. Patient is neurovascularly intact. There are multiple contusion noted to right forearm. X-rays obtained negative. Patient given symptomatic control with ibuprofen. Patient extremely anxious in emergency department for which Ativan was given. Patient eager for discharge upon reevaluation. Results discussed with patient, all questions answered. Pain believed to be musculoskeletal in nature. I advised [id number] ibuprofen and Tylenol for pain control outpatient. Strict return parameters discussed. Patient discharged in stable condition. Patient verbally expressed understanding and agreement with care plan. Case discussed with ED attending, Dr. Will. Undiagnosed new problem with uncertain prognosis? @ -No Drug Therapy requiring intensive monitoring for toxicity (Heparin, Nitro, Insulin, Cardizem)? @ -No Were any procedures done? @ -No Diagnosis/symptom? @ -Forearm pain Acute, or Chronic, or Acute on Chronic? @ -Acute Uncomplicated (without systemic symptoms) or Complicated (systemic symptoms)? @ -Uncomplicated Side effects of treatment? @ -No Exacerbation, Progression, or Severe Exacerbation? @ -No Poses a threat to life or bodily function? How? (Chest pain, [place], [place], pneumonia, PE, COPD, DKA, ARF, appy, cholecystitis, CVA, Diverticulitis, Homicidal, Suicidal, threat to staff... and all critical care pts) @ -No - Radiology Data Radiology results: report reviewed, image reviewed Disposition Clinical Impression: Contusion Disposition: HOME SELF-CARE Condition: Stable Additional Instructions: Follow-up with PCP. You may take [id number] ibuprofen and Tylenol for pain control. Return to the ER for any new or worsening concerns. Is patient prescribed a controlled substance at d/c from ED?: No Referrals: Lee Stearns MD [Primary Care Provider] - 1-2 days Time of Disposition: 16:45
--- NOTE | 2024-04-29 16:31 | XR ---
EXAMINATION TYPE: XR hand complete RT DATE OF EXAM: 04/29/2024 4:21 PM COMPARISON: None. CLINICAL INDICATION: Female, 33 years old with history of pain after wrestling, pain TECHNIQUE: 3 view(s) obtained. FINDINGS: No acute fractures or dislocations evident. Joint spaces are preserved. Soft tissues appear normal. Follow up exams can be performed 7-10 days from acute trauma for DVT pain. Ostosis may be at the dist al fifth metacarpal. IMPRESSION: 1. No acute osseous abnormality right hand [facility], , 04/29/2024 4:29 PM
--- NOTE | 2024-04-29 16:32 | XR ---
EXAMINATION TYPE: XR forearm RT DATE OF EXAM: 04/29/2024 4:21 PM COMPARISON: None. CLINICAL INDICATION: Female, 33 years old with history of pain after wrestling, pain TECHNIQUE: 2 view(s) obtained. FINDINGS: No acute fracture or dislocation evident. Joint spaces are preserved. Soft tissues are normal. Follow up exams can be performed 7-10 days from acute trauma for continued pain. IMPRESSION: 1. No acute osseous abnormality right forearm [facility], , 04/29/2024 4:30 PM
[2024-04-29] MEDS: LORazepam 1 MG TAB PO STA (16:33)
[2024-04-29 16:50] VITALS: BP 131/89; RESP 18; TEMP 97.9
== END 2024-04-29 16:49 | disposition home or self-care (01) ==
LOC: EDSEX → EC 15:29
DX: S50.11XA Contusion of right forearm, initial encounter (principal); F41.9 Anxiety disorder, unspecified; F17.290 Nicotine dependence, other tobacco product, uncomplicated; Z88.0 Allergy status to penicillin; Z88.8 Allergy status to other drugs, medicaments and biological substances; Z91.041 Radiographic dye allergy status; Y04.0XXA Assault by unarmed brawl or fight, initial encounter; Y93.72 Activity, wrestling
CPT/HCPCS: 99283

== ENCOUNTER 2024-05-07 23:09 | Emergency (ER) | payer MEDICARE ==
--- NOTE | 2024-05-07 23:12 | ED ---
Psych HPI - General Stated Complaint: SI Time Seen by Provider: 05/07/24 23:12 Source: police, RN notes reviewed, old records reviewed Mode of arrival: EMS Limitations: no limitations - History of Present Illness Initial Comments: This is a 33-year-old male to the ER for evaluation patient presents today for evaluation regards to psychiatric illness presents by PD for homicidal and suicidal thoughts under petition MD Complaint: suicidal ideation Associated Psychiatric Symptoms: depression, suicidal ideation History of same: Yes Quality: intermittent Context: significant life stressor Associated Symptoms: denies other symptoms Treatments Prior to Arrival: placed on mental health hold If Self Harm: admits thoughts of self harm - Related Data Home Medications Medication Instructions Recorded Confirmed ALPRAZolam [Xanax] 0.5 - 1 mg PO TID PRN 12/28/19 12/14/23 Dextroamphetamine/Amphetamine 20 mg PO TID 12/14/23 12/14/23 [Adderall] Testosterone Cypionate 100 mg IM MAGANA 12/14/23 12/14/23 [Depo-Testosterone] Allergies Allergy/AdvReac Type Severity Reaction Status Date / Time azithromycin Allergy Unknown Verified 05/07/24 23:26 iodine Allergy Unknown Verified 05/07/24 23:26 Penicillins Allergy Unknown Verified 05/07/24 23:26 Childhood Review of Systems ROS Statement: Those systems with pertinent positive or pertinent negative responses have been documented in the HPI. ROS Other: All systems not noted in ROS Statement are negative. Past Medical History Past Medical History: Asthma Additional Past Medical History / Comment(s): SEASONAL ASTHMA. SEVERE PAIN DURING MENSES. History of Any Multi-Drug Resistant Organisms: None Reported Additional Past Surgical History / Comment(s): DENTAL EXTRACTIONS, D&C Past Anesthesia/Blood Transfusion Reactions: No Reported Reaction Past Psychological History: ADD/ADHD, Anxiety, Bipolar, Depression Smoking Status: Current every day smoker, Vaper Past Alcohol Use History: None Reported Past Drug Use History: Marijuana - Past Family History Mother History Unknown: Yes Family Medical History: No Reported History Additional Family Medical History / Comment(s): ADOPTED, NO FAMILY HX KNOWN Father History Unknown: Yes General Exam General appearance: alert, in no apparent distress Head exam: Present: atraumatic, normocephalic, normal inspection Eye exam: Present: normal appearance, PERRL, EOMI. Absent: scleral icterus, conjunctival injection, periorbital swelling ENT exam: Present: normal exam, mucous membranes moist Neck exam: Present: normal inspection. Absent: tenderness, meningismus, lymphadenopathy Respiratory exam: Present: normal lung sounds bilaterally. Absent: respiratory distress, wheezes, rales, rhonchi, stridor Cardiovascular Exam: Present: regular rate, normal rhythm, normal heart sounds. Absent: systolic murmur, diastolic murmur, rubs, gallop, clicks GI/Abdominal exam: Present: soft, normal bowel sounds. Absent: distended, tenderness, guarding, rebound, rigid Extremities exam: Present: normal inspection, full ROM, normal capillary refill. Absent: tenderness, pedal edema, joint swelling, calf tenderness Back exam: Present: normal inspection Neurological exam: Present: alert, oriented X3, CN II-XII intact Psychiatric exam: Present: normal affect, normal mood Skin exam: Present: warm, dry, intact, normal color. Absent: rash Course Vital Signs 05/07/24 23:46 Temperature 98.4 F Pulse Rate 96 Respiratory 19 Rate Blood Pressure 143/95 O2 Sat by Pulse 96 Oximetry - Reevaluation(s) Reevaluation #1: Medical records reviewed Reevaluation #2: Medically clear for psychiatric evaluation Reevaluation #3: Differential Mental Health Depression, anxiety, bipolar, psychosis, schizophrenia, borderline personality, situational depression, adjustment disorder, behavioral disorder, brain tumor, malingering, substance abuse, encephalopathy, medication reaction, dementia, hypothyroidism, degenerative neurologic disorder, lupus.... This is not meant to be all-inclusive list Medical Decision Making - Medical Decision Making 33 male who was seen and evaluated by psychiatry here in the ER, patient is okay for discharge home Disposition Clinical Impression: Depression, Psychosis, Mood disorder Disposition: HOME SELF-CARE Condition: Fair Instructions (If sedation given, give patient instructions): Mood Disorders (ED) Is patient prescribed a controlled substance at d/c from ED?: No Referrals: Lee Stearns MD [Primary Care Provider] - 1-2 days
[2024-05-07 23:52] VITALS: BP 143/95; PULSE 96; RESP 19; TEMP 98.4
[2024-05-08] MEDS: ZIPRASIDONE 20 MG VIAL IM STA (01:34)
== END 2024-05-08 01:43 | disposition home or self-care (01) ==
LOC: EC 23:09
DX: F32.A Depression, unspecified (principal); F29 Unspecified psychosis not due to a substance or known physiological condition; F17.290 Nicotine dependence, other tobacco product, uncomplicated; Z88.0 Allergy status to penicillin; Z88.1 Allergy status to other antibiotic agents; Z91.041 Radiographic dye allergy status
CPT/HCPCS: 82075; 99285

== ENCOUNTER 2024-05-29 12:44 | Emergency (ER) | payer MEDICARE ==
[2024-05-29 12:51] VITALS: BP 95/69; PULSE 115; RESP 18; TEMP 98.5
--- NOTE | 2024-05-29 12:54 | ED ---
General Adult HPI - General Chief complaint: Recheck/Abnormal Lab/Rx Stated complaint: [facility] clearance Time Seen by Provider: 05/29/24 12:52 Source: patient, police Mode of arrival: wheelchair Limitations: no limitations - History of Present Illness Initial comments: Patient brought to the ED by police for evaluation for [facility]ci clearance. Per police, they were called because the patient was apparently in a domestic altercation with his girlfriend. Per police, the patient reported that he was trying to stop his girlfriend from committing suicide. Per police, when they arrived, the patient had his girlfriend and a "choke hold". Per police, the patient became combative with them when they tried to remove him from his girlfriend. Per police, the patient then began to hit his head against the wall, and he did so several times. Police deny any loss of consciousness. Per police, the patient is under arrest and will be taken to fci if and when medically cleared. Patient reports to me that he was just trying to help his girlfriend. Patient is very anxious and tearful on arrival to the ED. Patient denies having any pain at this time. Patient denies alcohol or drug use. Patient apparently made a comment to his ED nurse that he was having suicidal thoughts, but patient denies having any suicidal thoughts to me. Patient denies medication abuse or overdose. Patient denies headache, neck/back/extremity pain, chest pain, dyspnea, abdominal pain, nausea or vomiting, focal neuro deficit, or any other symptoms or complaints at this time. Patient is unsure of his last tetanus shot. - Related Data Home Medications Medication Instructions Recorded Confirmed ALPRAZolam [Xanax] 0.5 - 1 mg PO TID PRN 12/28/19 12/14/23 Dextroamphetamine/Amphetamine 20 mg PO TID 12/14/23 12/14/23 [Adderall] Testosterone Cypionate 100 mg IM MAGANA 12/14/23 12/14/23 [Depo-Testosterone] Allergies Allergy/AdvReac Type Severity Reaction Status Date / Time azithromycin Allergy Unknown Verified 05/07/24 23:26 iodine Allergy Unknown Verified 05/07/24 23:26 Penicillins Allergy Unknown Verified 05/07/24 23:26 Childhood Review of Systems ROS Statement: Those systems with pertinent positive or pertinent negative responses have been documented in the HPI. ROS Other: All systems not noted in ROS Statement are negative. Past Medical History Past Medical History: Asthma Additional Past Medical History / Comment(s): SEASONAL ASTHMA. SEVERE PAIN DURING MENSES. History of Any Multi-Drug Resistant Organisms: None Reported Additional Past Surgical History / Comment(s): DENTAL EXTRACTIONS, D&C Past Anesthesia/Blood Transfusion Reactions: No Reported Reaction Past Psychological History: ADD/ADHD, Anxiety, Bipolar, Depression Smoking Status: Current every day smoker, Vaper Past Alcohol Use History: None Reported Past Drug Use History: Marijuana - Past Family History Mother History Unknown: Yes Family Medical History: No Reported History Additional Family Medical History / Comment(s): ADOPTED, NO FAMILY HX KNOWN Father History Unknown: Yes General Exam Limitations: no limitations General appearance: alert, anxious Head exam: Present: other (Swelling, ecchymosis and superficial abrasions are noted over the patient's right forehead and bilateral zygomatic regions) Eye exam: Present: PERRL, EOMI ENT exam: Present: normal oropharynx, mucous membranes moist, TM's normal bilaterally Neck exam: Present: normal inspection, other (Trachea is in midline). Absent: tenderness Respiratory exam: Present: normal lung sounds bilaterally. Absent: respiratory distress, wheezes, rales, rhonchi, stridor, chest wall tenderness Cardiovascular Exam: Present: regular rate, normal rhythm, normal heart sounds, other (Normal radial and dorsalis pedis pulses bilaterally) GI/Abdominal exam: Present: soft. Absent: distended, tenderness, guarding Extremities exam: Present: full ROM, other (Pelvis is stable and nontender). Absent: tenderness, pedal edema, calf tenderness Back exam: Present: normal inspection. Absent: tenderness Neurological exam: Present: alert, oriented X3, CN II-XII intact. Absent: motor sensory deficit Psychiatric exam: Present: anxious, other (Tearful) Skin exam: Present: warm, dry, normal color Course Vital Signs 05/29/24 12:45 Temperature 98.5 F Pulse Rate 115 H Respiratory 18 Rate Blood Pressure 95/69 O2 Sat by Pulse 95 Oximetry - Reevaluation(s) Reevaluation #1: 05/29/24 14:16 Patient is no longer anxious and tearful in appearance. Patient denies development of any new pain or symptoms while in the ED. Patient remains alert and breathing comfortably. Patient is aware of his negative CT imaging reports. He was counseled about head injuries/facial contusions and abrasions. He was clearly explained return and follow-up instructions. Will discharge patient to police custody/fci at this time, as he has been medically cleared. Police officers assure me that given the patient's suicidal comments to his ED nurse, they will place the patient under suicidal precautions at fci. Medical Decision Making - Medical Decision Making Was pt. sent in by a medical professional or institution (, PA, STEAM AND POWER SUPERVISOR, urgent care, hospital, or residential...) When possible be specific @ -No Did you speak to anyone other than the patient for history (EMS, parent, family, police, friend...)? What history was obtained from this source @ -History was also obtained from police. Did you review nursing and triage notes (agree or disagree)? Why? @ -I reviewed and agree with nursing and triage notes Were old charts reviewed (outside hosp., previous admission, EMS record, old EKG, old radiological studies, urgent care reports/EKG's, residential records)? Report findings @ -No old charts were reviewed Differential Diagnosis (chest pain, altered mental status, abdominal pain women, abdominal pain men, vaginal bleeding, weakness, fever, dyspnea, syncope, headac he, dizziness, GI bleed, back pain, seizure, CVA, palpatations, mental health, musculoskeletal)? @ -Head injury, ICH, concussion, contusions, abrasions, sprain, strain, fracture, suicidal ideations, depression, anxiety, psychiatric disease, this is not meant to be a complete list. EKG interpreted by me (3pts min.). @ -None done X-rays interpreted by me (1pt min.). @ -None done CT interpreted by me (1pt min.). @ -Noncontrast head/cervical spine/facial bone CTs were all reviewed myself and do not demonstrate any acute abnormalities. I agree with the radiologist's interpretations as above. U/S interpreted by me (1pt. min.). @ -None done What testing was considered but not performed or refused? (CT, X-rays, U/S, labs)? Why? @ -None What meds were considered but not given or refused? Why? @ -None Did you discuss the management of the patient with other professionals (professionals i.e. , PA, STEAM AND POWER SUPERVISOR, lab, RT, psych nurse, social worker clinical, furniture sales consultant, teacher, sea air land officer, child support case officer)? Give summary @ -No Was smoking cessation discussed for >3mins.? @ -No Was critical care preformed (if so, how long)? @ -No Were there social determinants of health that impacted care today? How? ( Homelessness, low income, unemployed, alcoholism, drug addiction, transportation, low edu. Level, literacy, decrease access to med. care, fci, rehab)? @ -No Was there de-escalation of care discussed even if they declined (Discuss DNR or withdrawal of care, Hospice)? DNR status @ -No What co-morbidities impacted this encounter? (DM, HTN, Smoking, COPD, CAD, Cancer, CVA, ARF, Chemo, Hep., AIDS, mental health diagnosis, sleep apnea, morbid obesity)? @ -None Was patient admitted / discharged? Hospital course, mention meds given and route, prescriptions, significant lab abnormalities, going to OR and other pertinent info. @ -Patient is no longer combative, and he has now more cooperative. Patient remains alert and breathing comfortably. Patient's CT imaging reports are all negative. Patient's tetanus has been updated in the ED. Will discharge patient to police custody at this time. Police will be taking the patient to fci. Undiagnosed new problem with uncertain prognosis? @ -No Drug Therapy requiring intensive monitoring for toxicity (Heparin, Nitro, Insulin, Cardizem)? @ -No Were any procedures done? @ -No Diagnosis/symptom? @ -Head injury, facial contusions, facial abrasions, suicidal comments Acute, or Chronic, or Acute on Chronic? @ -Acute Uncomplicated (without systemic symptoms) or Complicated (systemic symptoms)? @ -Default Side effects of treatment? @ -No Exacerbation, Progression, or Severe Exacerbation? @ -No Poses a threat to life or bodily function? How? (Chest pain, [place], [place], pneumonia, PE, COPD, DKA, ARF, appy, cholecystitis, CVA, Diverticulitis, Homicidal, Suicidal, threat to staff... and all critical care pts) @ -No - Radiology Data Noncontrast CT head: No acute bleed or mass effect. Noncontrast CT cervical spine: No acute trauma. Noncontrast CT facial bones: 1. No facial bone fractures. 2. No acute or chronic sinusitis. Disposition Clinical Impression: Facial contusion, Head injury, Facial abrasion Narrative: Suicidal comments Disposition: OTHER INSTITUTION NOT DEFINED Condition: Stable Instructions (If sedation given, give patient instructions): Head Injury (ED), Abrasion (ED), Facial Contusion (ED), Suicide Prevention (ED) Additional Instructions: Return to the ER immediately should you develop new or worsening pain or symptoms. Follow-up closely with your primary care provider. Is patient prescribed a controlled substance at d/c from ED?: No Referrals: None,Stated [Primary Care Provider] - 1-2 days Joseph Pittman DO [STAFF PHYSICIAN] - 1-2 days Time of Disposition: 14:18 - Out of Hospital Transfer - Req. Specs Out of Hospital Transfer - Requested Specifics: Other Non-Acute (fci)
[2024-05-29] MEDS: ALPRAZolam 0.5 MG TAB PO STA (13:16)
[2024-05-29] MEDS: DIPH,PERTUS(ACELL)TETVAC-LF 0.5 ML VIAL IM ONE (13:16)
--- NOTE | 2024-05-29 14:04 | CT ---
EXAMINATION TYPE: CT brain muine wo con DATE OF EXAM: 05/29/2024 COMPARISON: CT brain dated CLINICAL INDICATION: Male, 33 years old with history of Head injury; PHH, HEAD INJURY AFTER RUNNING I N TO WALL.. BLOOD AND CUTS ON FACE TECHNIQUE: CT scan of the head and cervical spine are performed without contrast. CT DLP: 1134.[address] CTDI: mGy Automated exposure control for dose reduction was used. 06/30/2015 Findings: Head CT: Ventricles, basal cisterns and sulci over convexities within normal limits and there is no mass, mass effect or shift of midline structures. No abnormal density is seen throughout the brain parenchyma and there is no acute intra or extra-axia l hemorrhage. Posterior fossa including the brainstem, fourth ventricle and cerebellar pontine angles are grossly n ormal. The intraorbital contents appear normal and symmetric. Visualized paranasal sinuses are well aerated. CT cervical spine: Craniovertebral junction relationships and prevertebral soft tissues are normal. The cervical vertebral segments are normal in height and alignment and there is no fracture subluxati on. The disc spaces are well-maintained in height and there is no significant degenerative disc disease. The bony cervical canal is widely patent and there is no bony encroachment of the neural foramina. The paraspinal soft tissues unremarkable. IMPRESSION: 1. Head CT: No acute bleed or mass effect. 2. CT cervical spine: No acute trauma. [facility], Workstation: [facility], 05/29/2024 2:02 PM
--- NOTE | 2024-05-29 14:07 | CT ---
EXAMINATION TYPE: CT facial bones wo con DATE OF EXAM: 05/29/2024 COMPARISON: None CLINICAL INDICATION: Male, 33 years old with history of head injury; PHH, HEAD INJURY AFTER RUNNING I N TO WALL.. BLOOD AND CUTS ON FACE TECHNIQUE: CT scan of the sinuses is performed without contrast, axial images are obtained, coronal reformatted images are also reviewed. CT DLP: 1134.[address] CTDI: mGy Automated exposure control for dose reduction was used. FINDINGS: The facial bones are intact and there is no evidence of fracture. The paranasal sinuses including the frontal, ethmoid, sphenoid, and maxillary sinuses bilaterally a re well-aerated without abnormal opacification. The ostiomeatal complex is patent bilaterally on the coronal images. Fractures mild similar blood within the right aspect of the nasal cavity which is otherwise intact. Visualized portion of mastoid air cells show no abnormal opacification. The globes are intact bilate rally. IMPRESSION:. 1. No facial bone fractures. 2. No acute or chronic sinusitis.. [facility], Workstation: [facility] 05/29/2024 2:05 PM
== END 2024-05-29 14:18 | disposition other institution (70) ==
LOC: EC 12:44
DX: S00.83XA Contusion of other part of head, initial encounter (principal); S09.90XA Unspecified injury of head, initial encounter; S00.81XA Abrasion of other part of head, initial encounter; F17.290 Nicotine dependence, other tobacco product, uncomplicated; Z88.0 Allergy status to penicillin; Z88.1 Allergy status to other antibiotic agents; Z88.8 Allergy status to other drugs, medicaments and biological substances; Z23 Encounter for immunization; W22.01XA Walked into wall, initial encounter; Y93.02 Activity, running
CPT/HCPCS: 70450; 70486; 72125; 90471; 90715; 99284

== ENCOUNTER 2024-06-07 15:19 | Inpatient (IN) | payer MEDICARE, MEDICAID ==
--- NOTE | 2024-06-07 16:04 | ED ---
Psych HPI - General Chief Complaint: Psychiatric Symptoms Stated Complaint: Mental Health Eval. Time Seen by Provider: 06/07/24 15:41 Source: patient, family, RN notes reviewed, old records reviewed Mode of arrival: ambulatory Limitations: no limitations - History of Present Illness Initial Comments: Patient comes in with mother who is very concerned with patient's psychiatric and mental health. He is just out of incarceration off medications and inc reasingly suicidal MD Complaint: suicidal ideation, feels depressed -: days(s) Associated Psychiatric Symptoms: depression, suicidal ideation Quality: getting worse Improves With: none Context: not taking psychiatric medications, significant life stressor Associated Symptoms: denies other symptoms Treatments Prior to Arrival: placed on mental health hold If Self Harm: admits thoughts of self harm - Related Data Home Medications Medication Instructions Recorded Confirmed ALPRAZolam [Xanax] 1 mg PO TID PRN 12/28/19 06/07/24 Dextroamphetamine/Amphetamine 30 mg PO BID 06/07/24 06/07/24 [Adderall Xr 30 mg Capsule] Lurasidone [Latuda] 40 mg PO DAILY 06/07/24 06/07/24 PARoxetine HCL [Paxil Cr] 50 mg PO DAILY 06/07/24 06/07/24 Allergies Allergy/AdvReac Type Severity Reaction Status Date / Time azithromycin Allergy Unknown Verified 05/07/24 23:26 cariprazine [From Vraylar] Allergy Swelling Verified 06/07/24 15:22 cinnamon Allergy Unknown Verified 06/08/24 14:59 iodine Allergy Unknown Verified 05/07/24 23:26 Penicillins Allergy Swelling Verified 06/07/24 17:24 Review of Systems ROS Statement: Those systems with pertinent positive or pertinent negative responses have been documented in the HPI. ROS Other: All systems not noted in ROS Statement are negative. Past Medical History Past Medical History: Asthma Additional Past Medical History / Comment(s): SEASONAL ASTHMA. SEVERE PAIN DURING MENSES. History of Any Multi-Drug Resistant Organisms: None Reported Additional Past Surgical History / Comment(s): DENTAL EXTRACTIONS, D&C, top surgery Past Anesthesia/Blood Transfusion Reactions: No Reported Reaction Past Psychological History: ADD/ADHD, Anxiety, Bipolar, Depression Smoking Status: Current every day smoker, Vaper Past Alcohol Use History: None Reported Past Drug Use History: Marijuana - Past Family History Mother History Unknown: Yes Family Medical History: No Reported History Additional Family Medical History / Comment(s): ADOPTED, NO FAMILY HX KNOWN Father History Unknown: Yes General Exam Limitations: no limitations General appearance: alert, in no apparent distress Head exam: Present: atraumatic, normocephalic, normal inspection Eye exam: Present: normal appearance, PERRL, EOMI. Absent: scleral icterus, conjunctival injection, periorbital swelling ENT exam: Present: normal exam, mucous membranes moist Neck exam: Present: normal inspection. Absent: tenderness, meningismus, lymphadenopathy Respiratory exam: Present: normal lung sounds bilaterally. Absent: respiratory distress, wheezes, rales, rhonchi, stridor Cardiovascular Exam: Present: regular rate, normal rhythm, normal heart sounds. Absent: systolic murmur, diastolic murmur, rubs, gallop, clicks GI/Abdominal exam: Present: soft, normal bowel sounds. Absent: distended, tenderness, guarding, rebound, rigid Extremities exam: Present: normal inspection, full ROM, normal capillary refill. Absent: tenderness, pedal edema, joint swelling, calf tenderness Back exam: Present: normal inspection Neurological exam: Present: alert, oriented X3, CN II-XII intact Psychiatric exam: Present: normal affect, normal mood Skin exam: Present: warm, dry, intact, normal color. Absent: rash Course Vital Signs 06/07/24 06/07/24 06/07/24 15:23 17:09 17:51 Temperature 97.8 F Pulse Rate 85 Pulse Rate [ Pulse Oximetery ] Respiratory 16 16 17 Rate Blood Pressure 136/89 Blood Pressure [Right Arm] O2 Sat by Pulse 98 Oximetry 06/07/24 06/07/24 18:37 21:08 Temperature 98.3 F Pulse Rate Pulse Rate [ 60 Pulse Oximetery ] Respiratory 19 18 Rate Blood Pressure Blood Pressure 134/92 [Right Arm] O2 Sat by Pulse 100 Oximetry - Reevaluation(s) Reevaluation #1: 06/07/24 17:38 Medical records reviewed Reevaluation #2: 06/07/24 17:38 Medically cleared for psychiatric evaluation Reevaluation #3: Differential Mental Health Depression, anxiety, bipolar, psychosis, schizophrenia, borderline personality, situational depression, adjustment disorder, behavioral disorder, brain tumor, malingering, substance abuse, encephalopathy, medication reaction, dementia, hypothyroidism, degenerative neurologic disorder, lupus.... This is not meant to be all-inclusive list Medical Decision Making - Medical Decision Making 33 female will be admitted for psychiatric evaluation and treatment - Lab Data Result diagrams: 06/08/24 08:09 06/08/24 08:09 Lab Results 06/07/24 Range/Units 19:30 SARS-CoV-2 (PCR) Not Detected (Not Detectd) Disposition Clinical Impression: Acute anxiety, Acute psychosis, Depression Disposition: TRANSFER TO PSYCH HOSP/UNIT Condition: Fair Is patient prescribed a controlled substance at d/c from ED?: No
[2024-06-07] MEDS ORDERED: HALOPERIDOL LACTATE 5 MG/ML 1 ML VIAL IM PRN (22:21)
[2024-06-07] MEDS ORDERED: LORazepam 2 MG/ML INJ IM PRN (22:21)
[2024-06-07] MEDS ORDERED: MAGNESIUM HYDROXIDE 2,400 MG/30 ML CUP PO PRN (22:21)
[2024-06-07] MEDS ORDERED: haloperidoL 5 MG TAB PO PRN (22:21)
[2024-06-07] MEDS ORDERED: ACETAMINOPHEN TAB 325 MG TAB PO PRN (22:21)
[2024-06-07] MEDS ORDERED: MAG HYDROX/AL HYDROX/SIMETH 355 ML BOTTLE PO PRN (22:21)
[2024-06-08 02:03] LABS: Amorphous Sediment,Urine Occasional /hpf; Appearance,Urine Cloudy (Clear); Bacteria,Urine Rare /hpf; Bilirubin,Urine Negative (Negative); Blood,Urine Negative (Negative); Color,Urine Yellow; Glucose,Urine (UA) Negative (Negative); Ketones,Urine Negative (Negative); Leukocyte Esterase,Urine Trace (Negative); Mucus,Urine Occasional /hpf; Nitrite,Urine Negative (Negative); Protein,Urine Trace (Negative); RBC,Urine 2 /hpf (0-5); Specific Gravity,Urine 1.032 (1.001-1.035); Squamous Epithelial Cell,Urine 8 /hpf (0-4); WBC,Urine 2 /hpf (0-5)
[2024-06-08 08:26] LABS: Urine Alcohol Negative (Negative); Urine Barbiturate Negative (Negative); Urine Cocaine Negative (Negative); Urine Methadone Negative (Negative); Urine Opiates Negative (Negative); Urine Phencyclidine Negative (Negative)
[2024-06-08 08:36] LABS: Basophils # (A) 0.05 10*3/uL (0.00-0.10); Basophils % (A) 0.7 %; Eosinophils # (A) 0.08 10*3/uL (0.04-0.35); Eosinophils % (A) 1.1 %; HCT 47.4 % (37.2-46.3); Lymphocytes # (A) 1.93 10*3/uL (0.90-5.00); MCH 25.3 pg (27.0-32.0); MCHC 31.6 g/dL (32.0-37.0); MCV 80.1 fL (80.0-97.0); Mean Platelet Volume 10.7 fL (9.5-12.2); Monocytes # (A) 0.77 10*3/uL (0.20-1.00); Monocytes % (A) 10.4 %; Neutrophils # (A) 4.59 10*3/uL (1.80-7.70); Neutrophils % (A) 61.7 %; Platelet Count 336 10*3/uL (140-440); RBC 5.92 10*6/uL (4.10-5.20); RDW 13.7 % (11.5-14.5); WBC 7.43 10*3/uL (4.50-10.00)
[2024-06-08 09:01] LABS: ALT 21 U/L (4-34); AST 21 U/L (14-36); African American GFR (CKD) >90 (>60 ml/min/1.73 sqM); Albumin 4.3 g/dL (3.5-5.0); Alkaline Phosphatase 72 U/L (38-126); Anion Gap 8 mmol/L; Blood Urea Nitrogen 14 mg/dL (7-17); Calcium 9.6 mg/dL (8.4-10.2); Carbon Dioxide 27 mmol/L (22-30); Chloride 104 mmol/L (98-107); Glucose 104 mg/dL (74-99); Non-African American GFR(CKD) >90 (>60 ml/min/1.73 sqM); Potassium 4.3 mmol/L (3.5-5.1); Sodium 139 mmol/L (137-145); Total Bilirubin 0.5 mg/dL (0.2-1.3); Total Protein 7.4 g/dL (6.3-8.2)
[2024-06-08] MEDS: NICOTINE 14MG/24HR PATCH TRANSDERM SCH (09:01)
[2024-06-08] MEDS: PARoxetine 20 MG TAB PO SCH (09:01)
[2024-06-08] MEDS: LURASIDONE 20 MG TAB PO SCH (12:12)
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
[2024-06-08 15:20] LABS: Chol/HDL Ratio 3.08 Ratio; LDL Cholesterol,Calculated 81.9 mg/dL (0.0-131.0)
[2024-06-08] MEDS: LORazepam 1 MG TAB PO PRN (18:45)
--- NOTE | 2024-06-08 21:18 | P.CONS ---
History of Present Illness - Reason for Consult Consult date: 06/08/24 Medical management Requesting physician: Lizy Arias - Chief Complaint Not feeling well - History of Present Illness 33-year-old patient, goes by the name of Abraham. There is a very detailed history of presentation and the psychiatrist Dr. Medel's notes. Patient is a transgender male. He was just released from the shelter living with his adopted mother. About 8 days ago when he was taken to shelter he had fell forwards. Had some injury to his scalp. Some bruising around his right eye. He does complain of pain in the left knee. Sometimes giving way. There are some swelling though slightly better. Patient does smoke marijuana. Had not taken his psychiatric medications for some time. Eating well. No change in bowel pattern. Some trouble sleeping. Denies use of any other recreational drugs. Review of systems: GEN.: None EYES: Bruising around the right eye improving e HEENT: [Healing scar on the right forehead laterally NECK: None RESPIRATORY: None CARDIOVASCULAR: None GASTROINTESTINAL: None GENITOURINARY: None MUSCULOSKELETAL: Slight swelling around the left knee LYMPHATICS: None HEMATOLOGICAL: None PSYCHIATRY: More details in psychiatry note NEUROLOGICAL: None Social history: Just released from shelter. Lives with his adopted mom. Transgendered male. Does smoke marijuana. Denies smoking cigarettes/alcohol. Physical examination: VITAL SIGNS: 97.8, 98, 16, 120 x 83, 98% room GENERAL: [BMI 37.1, sitting in chair awake comfortable. EYES: Pupils equal. Conjunctiva tim l some bruising below the right eye.. HEENT: External appearance of nose and ears normal, oral cavity grossly normal. Healing scar on the right forehead laterally NECK: JVD not raised; masses not palpable. HEART: First and second heart sounds are normal; no edema. LUNGS: Respiratory rate normal; clear to auscultation. ABDOMEN: Soft, nontender, liver spleen not palpable, no masses palpable. PSYCH: Alert and oriented x3; mood and affect tim l. MUSCULOSKELETAL: Very slight swelling of the left knee. NEUROLOGICAL: Cranial nerves grossly intact; no facial asymmetry, power and sensation grossly intact. LYMPHATICS: No lymph nodes palpable in the axilla and neck INVESTIGATIONS, reviewed in the clinical context: White count 7.4 hemoglobin 15 platelets 336 sodium 139 potassium 4.3 creatinine 0.86 LDL 81.9 Urine drug screen positive for cannabinoids Assessment plan: - Cannabis recreational use - Bruising below the right eye secondary to fall. 8 days ago. Improving - Left knee injury secondary to fall. 8 days ago. According to patient does not give away sometimes. 2 view x-ray. Consult Ortho. Possibly meniscal injury - Obesity BMI 37.1 Weight loss measures Thank you. Patient to follow-up with Dr. Stearns upon discharge. Past Medical History Past Medical History: Asthma Additional Past Medical History / Comment(s): SEASONAL ASTHMA. SEVERE PAIN DURING MENSES. History of Any Multi-Drug Resistant Organisms: None Reported Additional Past Surgical History / Comment(s): DENTAL EXTRACTIONS, D&C, double masectomy Past Anesthesia/Blood Transfusion Reactions: No Reported Reaction Past Psychological History: ADD/ADHD, Anxiety, Bipolar, Depression Additional Psychological History / Comment(s): OCD. BORDERLINE PERSONALITY DISORDER. GOES TO [facility], SEES DR MATHEW. Smoking Status: Current every day smoker Past Alcohol Use History: None Reported Additional Past Alcohol Use History / Comment(s): social drinker, less than 7 per week Past Drug Use History: Marijuana Additional Drug Use History / Comment(s): SMOKES QID- 10 per day - Past Family History Mother History Unknown: Yes Family Medical History: No Reported History Additional Family Medical History / Comment(s): ADOPTED, NO FAMILY HX KNOWN Father History Unknown: Yes Medications and Allergies Home Medications Medication Instructions Recorded Confirmed Type ALPRAZolam [Xanax] 1 mg PO TID PRN 12/28/19 06/07/24 History Dextroamphetamine/Amphetamine 30 mg PO BID 06/07/24 06/07/24 History [Adderall Xr 30 mg Capsule] Lurasidone [Latuda] 40 mg PO DAILY 06/07/24 06/07/24 History PARoxetine HCL [Paxil Cr] 50 mg PO DAILY 06/07/24 06/07/24 History Allergies Allergy/AdvReac Type Severity Reaction Status Date / Time azithromycin Allergy Unknown Verified 05/07/24 23:26 cariprazine [From Vraylar] Allergy Swelling Verified 06/07/24 15:22 cinnamon Allergy Unknown Verified 06/08/24 14:59 iodine Allergy Unknown Verified 05/07/24 23:26 Penicillins Allergy Swelling Verified 06/07/24 17:24 Physical Exam Vitals: Vital Signs Temp Pulse BP Pulse Ox 06/08/24 09:00 97.8 F 98 120/83 98 Results CBC & Chem 7: 06/08/24 08:09 06/08/24 08:09 Labs: Abnormal Lab Results - Last 24 Hours (Table) 06/08/24 06/08/24 06/08/24 Range/Units 00:50 00:50 08:09 RBC 5.92 H (4.10-5.20) 10*6/uL Hct 47.4 H (37.2-46.3) % MCH 25.3 L (27.0-32.0) pg MCHC 31.6 L (32.0-37.0) g/dL Glucose (74-99) mg/dL Urine Appearance Cloudy H (Clear) Urine Protein Trace H (Negative) Ur Leukocyte Esterase Trace H (Negative) Ur Squamous Epith Cells 8 H (0-4) /hpf Amorphous Sediment Occasional H (None) /hpf Urine Bacteria Rare H (None) /hpf Urine Mucus Occasional H (None) /hpf U Cannabinoids Screen Positive A (Negative) 06/08/24 Range/Units 08:09 RBC (4.10-5.20) 10*6/uL Hct (37.2-46.3) % MCH (27.0-32.0) pg MCHC (32.0-37.0) g/dL Glucose 104 H (74-99) mg/dL Urine Appearance (Clear) Urine Protein (Negative) Ur Leukocyte Esterase (Negative) Ur Squamous Epith Cells (0-4) /hpf Amorphous Sediment (None) /hpf Urine Bacteria (None) /hpf Urine Mucus (None) /hpf U Cannabinoids Screen (Negative)
[2024-06-08] MEDS: MELATONIN 5 MG TABLET PO SCH (21:27)
--- NOTE | 2024-06-08 22:11 | XR ---
EXAMINATION TYPE: XR knee limited LT DATE OF EXAM: 06/08/2024 9:44 PM COMPARISON: None CLINICAL INDICATION: Female, 33 years old with history of Fall 8 days ago[address] Gives way at times; PHH, pain TECHNIQUE: XR knee limited LT 2 views submitted. FINDINGS: No evidence of any acute osseous pathology or soft tissue swellingnoted. Small joint effu neena may be present. IMPRESSION: There may be a small joint effusion, No acute osseous pathology. [facility], , 06/08/2024 10:09 PM
[2024-06-09] MEDS: PARoxetine 10 MG TAB PO SCH (08:07)
[2024-06-09] MEDS: LURASIDONE 40 MG TAB PO SCH (13:23)
--- NOTE | 2024-06-09 14:10 | P.PN ---
Progress Note - Text Progress Note Date: 06/09/24 Interval History: Patient was seen wandering the hallways and was directable and agreeable to sp arielle with poem writer in the office. Patient reports feeling well today. He states that his mom is bringing in his testosterone and Adderall today. He had a visitor yesterday during visitation. He reports sleeping well however does miss his emotional support pillowcase that helps him with sleep. He states his suicidal thoughts have improved, lesser than their usual baseline. He feels as though Latuda has been helpful with challenging his negative thoughts. He has been active in groups. At this time patient denies any homicidal ideations, intent or plan. Patient denies any auditory, visual hallucinations and denies any paranoia or delusions. Patient denies any side effects from the medications and has been compliant with meds. Mental Status Exam: General Appearance: Patient appears to be stated age is alert, directable, and cooperative. Patient is overweight Behavior: Patient is calmly seated without any agitated behavior. Speech: Patient's speech is fluent and nonpressured. Mood/Affect: Mood is improving mildly, affect is congruent and full range. Suicidality/Homicidality: Patient denies having any suicidal or homicidal ideation intent or plan. Patient reports suicidal ideations however lessening in intensity, less than baseline Perceptions: Patient denies any visual hallucinations and denies any auditory hallucinations Though content/process: There is no evidence of any delusional thought content and thought process is linear and goal-directed. Memory and concentration: AOX3, grossly intact for the purposes of this session Judgment and insight: Improving mildly Assessment Adjustment disorder with depressed mood Cannabis use disorder Cluster B traits History of ADHD Rule out PTSD Plan: -Patient continues to meet criteria for inpatient psychiatric admission for symptom stabilization and safety. Patient has signed adult voluntary form and medication consent and was placed in patient's chart. -Medications: Increase Paxil to 50 mg daily today for depression/anxiety, increase Latuda to 40 mg twice daily with meals for mood stabilization, melatonin 5 mg at bedtime for insomnia -When necessary Ativan and Haldol for agitation/aggression. -Labs: Reviewed -SW on board for discharge planning. Encouraged the patient to participate in milieu.
[2024-06-09] MEDS: IBUPROFEN 600 MG TAB PO PRN (22:45)
[2024-06-10] MEDS ORDERED: ADDERALL 30 MG PO SCH (10:00)
[2024-06-10] MEDS: ADDERALL 30 MG PO SCH ×2 (10:05→13:13)
[2024-06-10] MEDS ORDERED: PATIENTS OWN MED PO SCH (12:30)
--- NOTE | 2024-06-10 13:06 | P.PN ---
Progress Note - Text Progress Note Date: 06/10/24 Interval History: Patient was seen in his room and was directable and agreeable to speak with wr iter in the office. He mentions feeling well today, reporting good sleep and appetite. His mom was able to bring in his Adderall however he is not due for his testosterone injection for 2 weeks. He no longer feels suicidal. He does report jaw biting related to starting the Latuda however he mentioned having this previously that resolved with time. He has been attending groups, social with peers. At this time patient denies any homicidal ideations, intent or plan. Patient denies any auditory, visual hallucinations and denies any paranoia or delusions. Patient has been compliant with meds. Mental Status Exam: General Appearance: Patient appears to be stated age is alert, directable, and cooperative. He is overweight Behavior: Patient is calmly seated without any agitated behavior. Speech: Patient's speech is fluent and nonpressured. Mood/Affect: Mood is improving mildly, affect is congruent and reactive, bright. Suicidality/Homicidality: Patient denies having any suicidal or homicidal ideation intent or plan. Perceptions: Patient denies any visual hallucinations and denies any auditory hallucinations Though content/process: There is no evidence of any delusional thought content and thought process is linear and goal-directed. Memory and concentration: AOX3, grossly intact for the purposes of this session Judgment and insight: Improving mildly Assessment Adjustment disorder with depressed mood Cannabis use disorder Cluster B traits History of ADHD Rule out PTSD Plan: -Patient continues to meet criteria for inpatient psychiatric admission for symptom stabilization and safety. Patient has signed adult voluntary form and medication consent and was placed in patient's chart. -Medications: Continue Paxil 50 mg daily for depression/anxiety, Latuda 40 mg twice daily with meals for mood stabilization, melatonin 5 mg at bedtime for insomnia, Adderall XR 30 mg twice daily for ADHD -When necessary Ativan and Haldol for agitation/aggression. -Labs: Reviewed -SW on board for discharge planning. Encouraged the patient to participate in milieu. Anticipate discharge back home with mom early next week
--- NOTE | 2024-06-11 13:36 | P.PN ---
Progress Note - Text Progress Note Date: 06/11/24 Dictation was produced using [employer] dictation software. Please excuse any grammatical, word or spelling errors. Interval history: Patient was seen in the hallway and was directable and agreeable to speak with the process description writer in the office for psychiatric follow-up. He goes by Abraham, States that he has been feeling well, states that he did not have any biting or abnormal haw movements. States that he has been on Latuda for more than 10 years. States that mood is "good," states that sleep was good last night, admitted to good appetite, states that depression and anxiety are at the moderate side, he rated depression at 4/10, and anxiety at 6/10, states that he is anxious about the upcoming coming court case. He denied any current SI/HI or self harm. Denied any current AVH, or paranoia. States that he has been taking his medications, [place] any current side effects, denied any muscle stiffness, rigidity, abnormal movement, or drooling. Patient was educated on his current dose of Adderall XR and reported that he has been taking the medication for quite some time, denied any side effects, denied any chest pain shortness of breath, headache, patient was asked to check with his outpatient psychiatrist and may consider trying to decreasing the dose. States that he has been social with staff and peers, no issues of aggression or agitation reported. Mental status exam: General Appearance: Patient appears to be stated age is alert, directable, and cooperative. He is overweight Behavior: Patient is calmly seated without any agitated behavior. Speech: Patient's speech is fluent and nonpressured. Mood/Affect: Mood is improving mildly, affect is congruent and reactive, bright. Suicidality/Homicidality: Patient denies having any suicidal or homicidal ideation intent or plan. Perceptions: Patient denies any visual hallucinations and denies any auditory hallucinations Though content/process: There is no evidence of any delusional thought content and thought process is linear and goal-directed. Memory and concentration: AOX3, grossly intact for the purposes of this session Judgment and insight: Improving mildly Assessment Adjustment disorder with depressed mood Cannabis use disorder Cluster B traits History of ADHD Rule out PTSD Assessment/Plan: Continue with current diagnosis. Patient continues to meet criteria for inpatient psychiatric admission for symptom stabilization and safety. Patient will be maintained on current psychotropic medication regimen which include Paxil 50 mg p.o. daily, Latuda 40 mg p.o. twice daily, melatonin 5 mg p.o. at bedtime and Adderall XR 30 mg p.o. twice a day, psychoeducation was provided, risk, benefit and side effect discussed including his current dose of Adderall which he reported he has been on it for quite some time, maps reviewed. Monitor for medication compliance and for any psychotropic medication side effects. Will continue to monitor ongoing response to treatment. Encouraged participation in milieu.
--- NOTE | 2024-06-12 12:30 | P.PN ---
Progress Note - Text Progress Note Date: 06/12/24 Dictation was produced using [employer] dictation software. Please excuse any grammatical, word or spelling errors. Interval history: Patient "Abraham" was seen in the hallway and was directable and agreeable to speak with the functional tester typewriters in the office for psychiatric follow-up. States that he has been feeling good, states that he was able to sleep last night, admitted to good appetite. States that anxiety was a little bit high and he asked staff for prn medication which was helpful, he rated anxiety at 5/10, he states that he missed the morning group which made him anxious. He rated depression at 0-1/10. He denied any current suicidal, self-harm, homicidal thoughts or behavior, denied any current auditory or visual hallucination. Reported that he feels safe while in the unit, getting along well with everyone. He is compliant with his medication, denied any current side effects, denied any muscle stiffness, rigidity, abnormal movement, or drooling. Patient reported that he used to be on higher dose of the Latuda in the past and that was causing him side effects and would like to continue with the current dose. Patient denied any physical complaint, denied any chest pain shortness of breath, headache. States that he has been social with staff and peers, no issues of aggression or agitation reported. Mental status exam: General Appearance: Patient appears to be stated age is alert, directable, and cooperative. He is overweight Behavior: Patient is calmly seated without any agitated behavior. Speech: Patient's speech is fluent and nonpressured. Mood/Affect: Mood is improving mildly, affect is congruent and reactive, bright. Suicidality/Homicidality: Patient denies having any suicidal or homicidal ideation intent or plan. Perceptions: Patient denies any visual hallucinations and denies any auditory hallucinations Though content/process: There is no evidence of any delusional thought content and thought process is linear and goal-directed. Memory and concentration: AOX3, grossly intact for the purposes of this session Judgment and insight: Improving mildly Assessment Adjustment disorder with depressed mood Cannabis use disorder Cluster B traits History of ADHD Rule out PTSD Assessment/Plan: Continue with current diagnosis. Patient continues to meet criteria for inpatient psychiatric admission for symptom stabilization and safety. Patient will be maintained on current psychotropic medication regimen which include Paxil 50 mg p.o. daily, Latuda 40 mg p.o. twice daily, melatonin 5 mg p.o. at bedtime and Adderall XR 30 mg p.o. twice a day, psychoeducation was provided, risk, benefit and side effect discussed including his current dose of Adderall which he reported he has been on it for quite some time, maps reviewed. Monitor for medication compliance and for any psychotropic medication side effects. Will continue to monitor ongoing response to treatment. Encouraged participation in milieu.
[2024-06-13 10:14] VITALS: BP 114/79; PULSE 115; RESP 16; TEMP 98.4
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
== END 2024-06-13 13:54 | disposition home or self-care (01) | DRG 881 ==
LOC: EC 15:19 → 3MHU 20:53 → EDSEX 20:53
PROVIDERS: ADMIT Psychiatry & Neurology Psychiatry; ATTEND Psychiatry & Neurology Psychiatry
DX: F43.21 Adjustment disorder with depressed mood (principal); R45.851 Suicidal ideations; Z91.148 Patient's other noncompliance with medication regimen for other reason; F23 Brief psychotic disorder; F12.10 Cannabis abuse, uncomplicated; J45.909 Unspecified asthma, uncomplicated; F31.9 Bipolar disorder, unspecified; F60.3 Borderline personality disorder; F60.89 Other specific personality disorders; F17.290 Nicotine dependence, other tobacco product, uncomplicated; F41.9 Anxiety disorder, unspecified; F42.9 Obsessive-compulsive disorder, unspecified; G47.00 Insomnia, unspecified; F43.10 Post-traumatic stress disorder, unspecified; F64.0 Transsexualism; S00.11XD Contusion of right eyelid and periocular area, subsequent encounter; W19.XXXD Unspecified fall, subsequent encounter; M25.562 Pain in left knee; Z79.899 Other long term (current) drug therapy; Z88.8 Allergy status to other drugs, medicaments and biological substances; Z88.0 Allergy status to penicillin; Z88.1 Allergy status to other antibiotic agents; Z91.041 Radiographic dye allergy status
CPT/HCPCS: 80053; 80061; 80306; 81001; 81025; 82075; 83036; 84443; 85025; 87635; 99285